=== PATIENT | female | born 1940 | race Caucasian/White ===

== ENCOUNTER 2016-10-18 13:25 | Inpatient (IN) ==
[2016-10-18] MEDS ORDERED: 0.9 % SODIUM CHLORIDE 1,000 ML IV ONE ×3 (14:35→15:54)
[2016-10-18] MEDS ORDERED: DILTIAZEM 25 MG/5 ML VIAL IV ONE (14:39)
--- NOTE | 2016-10-18 14:42 | Emergency Department Note ---
Weakness HPI - General Chief complaint: Weakness Stated complaint: Weakness Time Seen by Provider: 10/18/16 14:20 Source: patient, family Mode of arrival: wheelchair Limitations: no limitations - History of Present Illness HPI Narrative: Seen 2 days ago for UTI, which did grow out Escherichia coli greater 100,000 and sensitive to septra. Daughter states she's had continuous weakness since her UTI. Denies any chest pain or shortness of breath. However, on the monitor when she first arrived rate shows A. fib with RVR, heart rate of approximately 160 - Related Data Home Medications Medication Instructions Recorded Confirmed Levothyroxine [Synthroid] 125 mcg PO DAILY 08/04/15 10/18/16 Donepezil [Aricept] 5 mg PO DAILY 11/04/15 10/18/16 Hydrochlorothiazide [Oretic] 50 mg PO DAILY 11/04/15 10/18/16 Metoprolol Tartrate [Lopressor] 25 mg PO DAILY 11/04/15 10/18/16 Sertraline HCl [Zoloft] 25 mg PO DAILY 11/04/15 10/18/16 Simvastatin [Zocor] 20 mg PO DAILY 11/04/15 10/18/16 Previous Rx's Medication Instructions Recorded Sulfamethoxazole/Trimethoprim 1 each PO BID #14 tablet 10/16/16 [Bactrim Ds Tablet] Allergies Allergy/AdvReac Type Severity Reaction Status Date / Time bacitracin [BACITRACIN] Allergy Mild RASH TO Verified 10/18/16 13:30 TOPICAL codeine [CODEINE] Allergy Mild RASH A Verified 10/18/16 13:30 CHILD penicillin V [PENICILLIN V] Allergy Mild RASH A Verified 10/18/16 13:30 CHILD Penicillins [PENICILLINS] AdvReac Mild Rash Verified 10/18/16 13:30 BEE STING Allergy Severe Anaphylaxis Uncoded 11/05/14 12:37 ADHESIVE TAPE Allergy Intermediate Rash Uncoded 11/05/14 12:37 Review of Systems All systems ED: reviewed and negative except as stated. Constitutional: Denies: fever, chills Eyes: Denies: eye pain ENT ED: Denies: ear pain Cardiovascular: Denies: chest pain Respiratory: Denies: cough Gastrointestinal: Denies: abdominal pain Genitourinary: Denies: urgency Musculoskeletal: Denies: back pain Integumentary: Denies: rash Neurological: Denies: headache Psychiatric: Denies: anxiety Endocrine: Denies: fatigue Hematological/Lymphatic: Denies: easy bleeding Allergic/Immunologic: Denies: facial swelling Past Medical History - Past Medical History Medical history: Reports: dementia, thyroid disease Family history: Reports: no significant family history - Social History smoking status: Never smoker Alcohol use: Reports: None Drug use: Reports: none Physical Exam - General Limitations: no limitations General appearance: alert - Head Head exam: atraumatic - Eye Eye exam: Present: normal appearance - ENT ENT exam: normal exam - Neck Neck exam: Present: normal inspection - Chest Chest inspection: Present: normal inspection - Respiratory Respiratory exam: Present: normal lung sounds bilaterally - Cardiovascular Cardiovascular exam: Present: regular rate, normal rhythm - Abdominal Exam Abdominal exam: Present: soft. Absent: distention, tenderness, guarding - Extremities Exam Extremities exam: Present: normal inspection, full ROM - Back Exam Back exam: Present: normal inspection, tenderness - Neurological Exam Neurological exam: Present: alert, oriented X3 Course Vital Signs Temperature 98.6 F 10/18/16 13:25 Pulse Rate 73 10/18/16 13:25 Respiratory Rate 20 10/18/16 13:25 Blood Pressure 106/61 10/18/16 13:25 Pulse Oximetry (%) 96 10/18/16 13:25 Temperature 103.0 F H 10/18/16 21:10 Pulse Rate 53 L 10/19/16 01:39 Respiratory Rate 12 10/19/16 01:39 Blood Pressure 99/41 10/19/16 01:31 Pulse Oximetry (%) 98 10/19/16 01:39 Weakness - Lab Data Result diagrams: 10/18/16 14:28 10/18/16 14:28 Lab Results 10/18/16 10/18/16 10/18/16 Range/Units 14:28 14:28 14:28 WBC 13.2 H (4.5-11.0) K/mcL RBC 4.89 (4.00-5.20) M/mcL Hgb 15.3 H (12.0-15.0) g/dL Hct 46.1 (36.0-48.0) % MCV 94.4 (80.0-100.0) fL MCH 31.4 (26.0-34.0) pg MCHC 33.2 (31.0-36.0) g/dL RDW 13.6 (11.5-14.5) % Plt Count 240 (140-440) K/mcL MPV 7.1 L (7.4-10.4) fL Total Counted 100 Seg Neutrophils % 77 (38-78) % Band Neutrophils % 16 H (0-10) % Lymphocytes % 3 L (15-49) % Monocytes % (Manual) 4 (1-12) % Platelet Estimate Normal (NORMAL) RBC Morphology Normal (NORMAL) ESR (0-20) mm/hr VBG Lactic Acid 3.0 H (0.5-2.2) mmol/L Sodium 131 L (133-145) mmol/L Potassium 4.6 (3.3-5.1) mmol/L Chloride 93 L (96-108) mmol/L Carbon Dioxide 21 L (22-30) mmol/L Anion Gap 17.0 H (8-16) BUN 27 H (8-23) mg/dl Creatinine 1.2 H (0.6-1.1) mg/dl GFR Calculation 44 Glucose 147 H (70-105) mg/dL Calcium 9.3 (8.6-10.4) mg/dl Total Bilirubin 0.8 (0.0-1.0) mg/dL AST 31 (0-37) U/l ALT 24 (0-40) U/l Alkaline Phosphatase 63 (39-117) U/L Total Creatine Kinase (24-170) IU/L CK-MB (CK-2) (0-2.9) ng/ml Myoglobin (25-58) ng/ml Troponin T (0-0.03) ng/ml C-Reactive Protein (0.0-0.8) mg/dl Total Protein 7.1 (5.9-8.4) gm/dL Albumin 3.7 (3.2-5.2) gm/dL Globulin 3.4 (2.2-3.7) gm/dL Albumin/Globulin Ratio 1.1 (1.0-2.3) TSH (0.27-5.01) uIU/ml Urine Color Urine Appearance Urine pH (5.0-9.0) Ur Specific [place] (1.000-1.035) Urine Protein (NEG) mg/dL Urine Glucose (UA) (NEG) mg/dL Urine Ketones (NEG) mg/dL Urine Occult Blood (<0.03) mg/dL Urine Nitrate (NEG) Urine Bilirubin (NEG) mg/dL Urine Urobilinogen (NEG) mg/dL Ur Leukocyte Esterase (NEG) /uL Urine RBC (0-1) /hpf Urine WBC (0-4) /hpf Ur Squamous Epith Cells (0-4) /hpf Ur Transition Epith Cell (0-2) /hpf Urine Bacteria (0) /hpf Hyaline Casts (0-2) /lpf Urine Mucus (0) /hpf Ur Culture Indicated? 10/18/16 10/18/16 10/18/16 Range/Units 14:28 14:28 14:28 WBC (4.5-11.0) K/mcL RBC (4.00-5.20) M/mcL Hgb (12.0-15.0) g/dL Hct (36.0-48.0) % MCV (80.0-100.0) fL MCH (26.0-34.0) pg MCHC (31.0-36.0) g/dL RDW (11.5-14.5) % Plt Count (140-440) K/mcL MPV (7.4-10.4) fL Total Counted Seg Neutrophils % (38-78) % Band Neutrophils % (0-10) % Lymphocytes % (15-49) % Monocytes % (Manual) (1-12) % Platelet Estimate (NORMAL) RBC Morphology (NORMAL) ESR (0-20) mm/hr VBG Lactic Acid (0.5-2.2) mmol/L Sodium (133-145) mmol/L Potassium (3.3-5.1) mmol/L Chloride (96-108) mmol/L Carbon Dioxide (22-30) mmol/L Anion Gap (8-16) BUN (8-23) mg/dl Creatinine (0.6-1.1) mg/dl GFR Calculation Glucose (70-105) mg/dL Calcium (8.6-10.4) mg/dl Total Bilirubin (0.0-1.0) mg/dL AST (0-37) U/l ALT (0-40) U/l Alkaline Phosphatase (39-117) U/L Total Creatine Kinase 57 (24-170) IU/L CK-MB (CK-2) 1.2 (0-2.9) ng/ml Myoglobin 56 (25-58) ng/ml Troponin T < 0.01 (0-0.03) ng/ml C-Reactive Protein (0.0-0.8) mg/dl Total Protein (5.9-8.4) gm/dL Albumin (3.2-5.2) gm/dL Globulin (2.2-3.7) gm/dL Albumin/Globulin Ratio (1.0-2.3) TSH 1.14 (0.27-5.01) uIU/ml Urine Color Urine Appearance Urine pH (5.0-9.0) Ur Specific [place] (1.000-1.035) Urine Protein (NEG) mg/dL Urine Glucose (UA) (NEG) mg/dL Urine Ketones (NEG) mg/dL Urine Occult Blood (<0.03) mg/dL Urine Nitrate (NEG) Urine Bilirubin (NEG) mg/dL Urine Urobilinogen (NEG) mg/dL Ur Leukocyte Esterase (NEG) /uL Urine RBC (0-1) /hpf Urine WBC (0-4) /hpf Ur Squamous Epith Cells (0-4) /hpf Ur Transition Epith Cell (0-2) /hpf Urine Bacteria (0) /hpf Hyaline Casts (0-2) /lpf Urine Mucus (0) /hpf Ur Culture Indicated? 10/18/16 10/18/16 10/18/16 Range/Units 14:28 14:28 15:57 WBC (4.5-11.0) K/mcL RBC (4.00-5.20) M/mcL Hgb (12.0-15.0) g/dL Hct (36.0-48.0) % MCV (80.0-100.0) fL MCH (26.0-34.0) pg MCHC (31.0-36.0) g/dL RDW (11.5-14.5) % Plt Count (140-440) K/mcL MPV (7.4-10.4) fL Total Counted Seg Neutrophils % (38-78) % Band Neutrophils % (0-10) % Lymphocytes % (15-49) % Monocytes % (Manual) (1-12) % Platelet Estimate (NORMAL) RBC Morphology (NORMAL) ESR 37 H (0-20) mm/hr VBG Lactic Acid (0.5-2.2) mmol/L Sodium (133-145) mmol/L Potassium (3.3-5.1) mmol/L Chloride (96-108) mmol/L Carbon Dioxide (22-30) mmol/L Anion Gap (8-16) BUN (8-23) mg/dl Creatinine (0.6-1.1) mg/dl GFR Calculation Glucose (70-105) mg/dL Calcium (8.6-10.4) mg/dl Total Bilirubin (0.0-1.0) mg/dL AST (0-37) U/l ALT (0-40) U/l Alkaline Phosphatase (39-117) U/L Total Creatine Kinase (24-170) IU/L CK-MB (CK-2) (0-2.9) ng/ml Myoglobin (25-58) ng/ml Troponin T (0-0.03) ng/ml C-Reactive Protein 9.4 H (0.0-0.8) mg/dl Total Protein (5.9-8.4) gm/dL Albumin (3.2-5.2) gm/dL Globulin (2.2-3.7) gm/dL Albumin/Globulin Ratio (1.0-2.3) TSH (0.27-5.01) uIU/ml Urine Color Swati Urine Appearance Cloudy Urine pH 5.0 (5.0-9.0) Ur Specific [place] 1.024 (1.000-1.035) Urine Protein 30 A (NEG) mg/dL Urine Glucose (UA) Negative (NEG) mg/dL Urine Ketones Neg (NEG) mg/dL Urine Occult Blood Neg (<0.03) mg/dL Urine Nitrate Neg (NEG) Urine Bilirubin Neg (NEG) mg/dL Urine Urobilinogen 4.0 A (NEG) mg/dL Ur Leukocyte Esterase 250 A (NEG) /uL Urine RBC 3 H (0-1) /hpf Urine WBC 33 H (0-4) /hpf Ur Squamous Epith Cells 7 H (0-4) /hpf Ur Transition Epith Cell 1 (0-2) /hpf Urine Bacteria Few A (0) /hpf Hyaline Casts 13 H (0-2) /lpf Urine Mucus Many A (0) /hpf Ur Culture Indicated? No Disposition Clinical Impression: Urosepsis Disposition: Xfer As Inpt ([facility]) Condition: Undetermined
[2016-10-18] MEDS ORDERED: DILTIAZEM 125 MG in 0.9 % SODIUM CHLORIDE 100 ML IV SCH (14:45)
[2016-10-18 14:56] LABS: Mean Cell Volume 94.4 fL (80.0-100.0); Mean Corpuscular HGB Conc 33.2 g/dL (31.0-36.0); Mean Corpuscular Hemoglobin 31.4 pg (26.0-34.0); Platelet Count 240 K/mcL (140-440); RBC 4.89 M/mcL (4.00-5.20); Red Cell Distribution Width 13.6 % (11.5-14.5)
--- NOTE | 2016-10-18 14:56 | XRay Report ---
CLINICAL INFORMATION: Weakness TECHNIQUE: AP semierect portal chest x-ray COMPARISON: Chest x-rays dated 11/04/2015, 03/14/2006 FINDINGS: Lungs are negative. No parenchymal infiltrate or mass. Heart size and vascularity are normal. [place] and mediastinum are negative. No pulmonary edema. No pulmonary congestion. IMPRESSION: Negative AP portable chest x-ray Interpreted and Authenticated by: John Barkley 10/18/16
[2016-10-18] MEDS ORDERED: ACETAMINOPHEN 325 MG TABLET PO ONE (15:21)
[2016-10-18] MEDS ORDERED: LACTATED RINGERS 1,000 ML IV ONE (15:22)
[2016-10-18 15:26] LABS: Band Neutrophils % 16 % (0-10); Lymphocytes % 3 % (15-49); Monocytes % (Manual) 4 % (1-12); Platelet Estimate NORMAL (NORMAL); RBC Morphology NORMAL (NORMAL); Segmented Neutrophils % 77 % (38-78)
[2016-10-18] MEDS ORDERED: cefTRIAXone 1 GM in DEXTROSE 5% IN WATER 50 ML IV ONE (15:30)
[2016-10-18] MEDS ORDERED: LEVOFLOXACIN 500 MG/100 ML BAG IV ONE (15:30)
[2016-10-18 15:32] LABS: ALT/SGPT 24 U/l (0-40); Albumin 3.7 gm/dL (3.2-5.2); Albumin/Globulin Ratio 1.1 (1.0-2.3); Alkaline Phosphatase 63 U/L (39-117); Blood Urea Nitrogen 27 mg/dl (8-23)
[2016-10-18 15:35] LABS: Creatine Kinase MB 1.2 ng/ml (0-2.9)
[2016-10-18] MEDS ORDERED: CEFEPIME 2 GM in DEXTROSE 5% IN WATER 50 ML IV ONE (16:29)
[2016-10-18] MEDS ORDERED: NOREPINEPHRINE BITARTRATE 8 MG in 0.9 % SODIUM CHLORIDE 242 ML IV SCH (16:30)
[2016-10-18] MEDS ORDERED: 0.9 % SODIUM CHLORIDE 250 ML IV SCH (16:30)
[2016-10-18 16:35] LABS: Appearance,Urine CLOUDY; Bacteria,Urine FEW /hpf (0); Bilirubin,Urine NEG (NEG); Color,Urine AMBER; Glucose,Urine (UA) NEGATIVE (NEG); Leukocyte Esterase,Urine 250 /uL (NEG); Mucus,Urine MANY /hpf (0); Nitrate,Urine NEG (NEG); Protein,Urine 30 mg/dL (NEG); Specific Gravity,Urine 1.024 (1.000-1.035); Urine Blood NEG mg/dL (<0.03); Urine Hyaline Cast 13 /lpf (0-2); Urine RBC 3 /hpf (0-1); Urine Squamous Epithelial Cell 7 /hpf (0-4); Urine Transitional Epi Cells 1 /hpf (0-2); Urine WBC 33 /hpf (0-4)
[2016-10-18] MEDS ORDERED: AMIODARONE 150 MG/3 ML VIAL IV ONE ×2 (16:36→16:39)
[2016-10-18] MEDS ORDERED: AMIODARONE HCL 450 MG in DEXTROSE 5% IN WATER (NON-PVC) 241 ML IV SCH (16:45)
--- NOTE | 2016-10-18 17:23 | XRay Report ---
CLINICAL INFORMATION: Central line placement TECHNIQUE: AP, supine portable chest x-ray COMPARISON: 10/18/2016, 11/04/2015 FINDINGS: Left central venous catheter with its tip at the junction of the brachiocephalic vein and superior vena cava. No pneumothorax identified on this AP, supine radiograph. No focal pulmonary parenchymal abnormality. IMPRESSION: Left central venous catheter with its tip at the junction of the superior vena cava and left brachiocephalic vein. Interpreted and Authenticated by: John Barkley 10/18/16
[2016-10-18] MEDS: 0.9 % SODIUM CHLORIDE 1,000 ML IV SCH (19:00)
[2016-10-18] MEDS ORDERED: POTASSIUM CHLORIDE 20 MEQ PACKET PO PRN (19:32)
[2016-10-18] MEDS ORDERED: NOREPINEPHRINE BITARTRATE 16 MG in 0.9 % SODIUM CHLORIDE 234 ML IV SCH (19:32)
[2016-10-18] MEDS ORDERED: ONDANSETRON 4 MG/2 ML VIAL IV PRN (19:32)
[2016-10-18] MEDS ORDERED: MAGNESIUM SULFATE 2 GM/50 ML BAG IV PRN (19:32)
[2016-10-18] MEDS ORDERED: VANCOMYCIN PER PHARMACY IV SCH (19:32)
--- NOTE | 2016-10-18 19:53 | History and Physical Report ---
DATE OF ADMISSION: 10/18/2016 DATE OF ADMISSION: 10/18/2016 REASON FOR ADMISSION: Weakness, fever, lightheadedness, dizziness. HISTORY OF CHIEF COMPLAINT: The patient is a 76-year-old with advanced dementia who lives with her daughter Allison and has been experiencing dysuria along with weakness over the last few days. The patient was seen 2 days ago in the ER, was prescribed Bactrim for UTI with E. coli; however, patient has continued to deteriorate without any significant response to antibiotics. She comes in lightheaded, dizzy, along with atrial fibrillation with RVR and blood pressures in the 60s. The patient was promptly started on vasopressors. Initially for rate control, the patient was started on diltiazem; however, in light of hypotension, she was loaded on amiodarone. Hospitalist Service was consulted after antibiotics and blood cultures were drawn. At the time of examination, the patient is accompanied with her daughter. She was able to provide some of the history. She has underlying dementia, but she was pleasant and cooperative. She does not seem in apparent distress. Her systolics have been hovering around mid 60s with elevated lactic acid. As per daughter, patient did not have any events including falls, diarrhea, dysuria, or seizure. She did endorse to lower abdominal discomfort but no nausea, vomiting, or weight loss. REVIEW OF SYSTEMS: Ten-point review of systems was performed and negative except the ones discussed above. PAST MEDICAL HISTORY: 1. Hypertension. 2. Dementia. 3. Hypothyroidism. 4. Anxiety disorder. 5. Hyperlipidemia. 6. Reactive airway disease. CURRENT MEDICATIONS: 1. Bactrim twice daily. 2. Albuterol as needed. 3. Simvastatin 20. 4. Sertraline 25. 5. Metoprolol 25. 6. Hydrochlorothiazide 50. 7. Donepezil 5. 8. Synthroid 125. ALLERGIES: PENICILLIN G, CODEINE, BACITRACIN, ADHESIVE, and BEE STINGS. SOCIAL HISTORY: Nonsmoker. Currently lives with her daughter who is a retired nurse. No history of smoking or alcoholism. FULL CODE STATUS. FAMILY HISTORY: Nonrelevant given advanced age and presenting symptoms. PHYSICAL EXAMINATION: GENERAL: The patient is fatigued and lethargic but cooperative. No anxiety or agitation. BMI 34.9. Height 5 feet 5 inches. VITAL SIGNS: Blood pressure down to 60s, improved to mid 80s after initiation of pressors, heart rate down from 140s to 118, temperature 102.8, respiratory rate 30, saturation 95% on room air. HEENT: Pupils symmetric. Oral cavity dry. No ear or nose discharge. Head is normocephalic and atraumatic. NECK: No lymphadenopathy. CHEST: S1, S2, irregular rhythm. ESM grade 1. Diminished breath sounds at bases. ABDOMEN: Soft and nontender except for epigastric area with tenderness to deep palpation but no fluid, guarding. Negative Santos's. Negative flank tenderness. LOWER EXTREMITIES: No cyanosis or clubbing. No joint swelling. SKIN: No suspicious lesions. PSYCHIATRIC: No anxiety or agitation but fatigued and lethargic. NEURO: Moving all 4 extremities. Higher functions could not be checked in light of dementia. LABS AND IMAGING: White count 13.2, hemoglobin 15.3, platelets 240, neutrophils 77%, bands 16% with significant left shift, lactic acid 3. Sodium 131, potassium 4.6, creatinine 1.2, BUN 27. Troponin negative. TSH 1.14. LFTs negative. Cardiac enzymes negative. UA: __ WBCs, many bacteria. ASSESSMENT AND PLAN: A 76-year-old with septic shock. 1. Septic shock. Will be managed per guidelines. Start pressors. Three liters crystalloid infused. Continue close hemodynamic monitoring, venous lactate trending, continue broad antibiotic coverage until culture is obtained. Urine cultures pansensitive Escherichia coli. 2. Complicated Escherichia coli urinary tract infection, rule out obstructive nephropathy with ultrasound. Continue broad antibiotic coverage. 3. Afib with RVR. Status post Amiodarone load. rate controlled. 4. Prior medical issues at this time: Hold all medication until patient is clinically stable. At this time, the patient is critically ill with [place] score of 20, signifying very high risk mortality. PLAN: 1. Admit to ICU. 2. Broad antibiotic coverage. 3. Pressors and crystalloids. Total time spent on history and physical 55 minutes, in addition 35 minutes spent critical care time on stabilization of patient, vasopressors, review of labs and imaging, and discussion with physician and transferring patient to ICU. AA:lonnie Job ID: [id number] Doc ID: [id number] Rusty DEAN
[2016-10-18] MEDS: ACETAMINOPHEN 325 MG TABLET PO PRN (20:25)
[2016-10-18] MEDS ORDERED: NAPROXEN 250 MG TABLET PO ONE (21:12)
[2016-10-18] MEDS: 0.9 % SODIUM CHLORIDE 250 ML IV SCH (21:33)
[2016-10-18] MEDS: HEPARIN 5,000 UNIT/ML VIAL SQ SCH (21:36)
[2016-10-18] MEDS: SENNOSIDES/DOCUSATE SODIUM 1 TAB TABLET PO SCH (21:37)
[2016-10-18] MEDS: 0.9 % SODIUM CHLORIDE 10 ML SYRINGE IV SCH (21:37)
[2016-10-18] MEDS: DOCUSATE SODIUM 100 MG CAPSULE PO SCH (21:37)
[2016-10-18] MEDS ORDERED: VANCOMYCIN 500 MG VIAL ONE (23:34)
[2016-10-18] MEDS: VANCOMYCIN 1,000 MG in 0.9 % SODIUM CHLORIDE 250 ML IV SCH (23:41)
[2016-10-19] MEDS ORDERED: AMIODARONE HCL 450 MG in DEXTROSE 5% IN WATER (NON-PVC) 241 ML IV SCH (02:00)
[2016-10-19] MEDS ORDERED: NOREPINEPHRINE BITARTRATE 4 MG/4 ML AMPUL IV ONE (02:27)
[2016-10-19 06:18] LABS: ALT/SGPT 22 U/l (0-40); Albumin 2.6 gm/dL (3.2-5.2); Alkaline Phosphatase 55 U/L (39-117); Bilirubin,Direct 0.6 mg/dL (0.0-0.3); Blood Urea Nitrogen 15 mg/dl (8-23); Gamma Glutamyl Transpeptidase 63 U/L (5-36); Magnesium 1.7 mg/dL (1.6-2.5); Uric Acid 3.4 mg/dL (2.5-8.0)
[2016-10-19] MEDS: 0.9 % SODIUM CHLORIDE 10 ML SYRINGE IV SCH ×2 (06:30→13:00)
[2016-10-19] MEDS: 0.9 % SODIUM CHLORIDE 1,000 ML IV SCH ×2 (06:41→21:07)
[2016-10-19] MEDS ORDERED: 0.9 % SODIUM CHLORIDE 10 ML SYRINGE IV PRN (07:03)
[2016-10-19 07:46] LABS: Mean Cell Volume 96.1 fL (80.0-100.0); Mean Corpuscular HGB Conc 33.6 g/dL (31.0-36.0); Mean Corpuscular Hemoglobin 32.2 pg (26.0-34.0); Platelet Count 192 K/mcL (140-440); RBC 4.12 M/mcL (4.00-5.20); Red Cell Distribution Width 13.7 % (11.5-14.5)
[2016-10-19 07:51] LABS: Band Neutrophils % 26 % (0-10); Eosinophils % (Manual) 2 % (0-7); Lymphocytes % 1 % (15-49); Metamyelocytes % 1 % (0-0); Monocytes % (Manual) 1 % (1-12); Platelet Estimate NORMAL (NORMAL); RBC Morphology NORMAL (NORMAL); Segmented Neutrophils % 69 % (38-78)
--- NOTE | 2016-10-19 08:24 | Ultrasound Report ---
CLINICAL INFORMATION: Renal failure. Obstructive uropathy. TECHNIQUE: Grayscale and color flow spectral imaging COMPARISON: None. FINDINGS: Right kidney measures 12.5 x 5.5 x 4.2 cm. No solid or cystic mass. No hydronephrosis. Normal sinus and cortical echoes. Left kidney measures 11.5 x 7.4 x 6.0 cm. There is a possible mass. This is in the mid left kidney and measures 4.7 x 4.2 x 3.4 cm. This may be a subtle-called dromedary hump but it appears somewhat hypoechoic compared with the normal cortical echotexture. Neoplasm is not excluded. CT scan or MRI scan is recommended for further evaluation. There is no left hydronephrosis. There is a Martel catheter within the urinary bladder. There appears to be some debris within the bladder. IMPRESSION: 1. Negative right kidney 2. Possible 4.7 cm solid mass in the left kidney. Further evaluation recommended. Interpreted and Authenticated by: John Barkley 10/19/16
[2016-10-19] MEDS ORDERED: 0.9 % SODIUM CHLORIDE 1,000 ML IV ONE (08:29)
[2016-10-19] MEDS ORDERED: DONEPEZIL 10 MG TABLET PO SCH (09:00)
[2016-10-19] MEDS: CEFEPIME 2 GM in DEXTROSE 5% IN WATER 50 ML IV SCH ×2 (09:01→20:52)
[2016-10-19] MEDS: LEVOFLOXACIN 750 MG/150 ML BAG IV SCH (09:51)
[2016-10-19] MEDS: MULTIVIT,THER IRON,CA,FA & MIN 1 TABLET PO SCH (10:13)
[2016-10-19] MEDS: SIMVASTATIN 20 MG TABLET PO SCH (10:13)
[2016-10-19] MEDS: DOCUSATE SODIUM 100 MG CAPSULE PO SCH ×2 (10:13→20:51)
[2016-10-19] MEDS: HEPARIN 5,000 UNIT/ML VIAL SQ SCH ×2 (10:14→20:51)
[2016-10-19] MEDS: SERTRALINE 50 MG TABLET PO SCH (10:20)
[2016-10-19] MEDS: ACETAMINOPHEN 325 MG TABLET PO PRN ×2 (10:30→19:08)
[2016-10-19] MEDS ORDERED: AMIODARONE HCL 450 MG in DEXTROSE 5% IN WATER (NON-PVC) 241 ML IV PRN (11:19)
[2016-10-19] MEDS: VANCOMYCIN 1,000 MG in 0.9 % SODIUM CHLORIDE 250 ML IV SCH ×2 (11:39→23:22)
[2016-10-19] MEDS: NOREPINEPHRINE BITARTRATE 8 MG in 0.9 % SODIUM CHLORIDE 242 ML IV SCH (11:43)
--- NOTE | 2016-10-19 13:47 | Internal Med Progress Note ---
Medical - PN: Subj Patient information: Note initiated : 10/19/16 at 1:45 pm Service Date, if different from initiated Date: [] Patient: Paige Christianson 76 y/o F admitted on 10/18/16 for Weakness/ Septic Shock. Chief Complaint: [] Interval history: 10/18-patient admitted with septic shock likely from genitourinary source. Recent UTI with Escherichia coli on cultures. started On vasopressors after 2-1 /2 L crystalloids. Improving urine output. Map at goal. transferred to ICU. Broad antibiotic coverage including vancomycin, Levaquin and cefepime. [place] score 20. Very high risk mortality. Family aware 10/19- on Levophed at 10 mics. MAXIMUM TEMPERATURE 103. renal ultrasound no obstructive uropathy however 4.[address] abdomen in 24 hours for evaluation if patient clinically improves. white count at 13.2. 26% bands. lactic acid down from 3-1.4. improving renal function with creatinine 1.2-0.8. continue pressors and close hemodynamic monitoring. Patient critically ill. - Constitutional Vitals: Vital Signs Temp Pulse Resp BP Pulse Ox 98.5 F 66 16 112/50 98 10/19/16 13:07 10/19/16 11:33 10/19/16 13:07 10/19/16 13:07 10/19/16 13:07 Period Temp Pulse Resp BP Sys/Ribeiro Pulse Ox Last 24 Hr 98.2 F-103.0 F 53-88 12-37 90-138/41-93 92-99 Intake and Output 10/18/16 10/19/16 10/19/16 21:59 05:59 13:59 Intake Total 222 / 4457 1250 / 1250 3170 / 3170 Output Total 645 / 645 840 / 840 920 / 920 Balance -423 / 3812 410 / 410 2250 / 2250 Weight 203 lb 4.8 oz Intake & Output: Intake & Output 10/18/16 10/19/16 10/19/16 21:59 05:59 13:59 Intake Total 222 / 4457 1250 / 1250 3170 / 3170 Output Total 645 / 645 840 / 840 920 / 920 Balance -423 / 3812 410 / 410 2250 / 2250 Weight 203 lb 4.8 oz Intake: IV 122 / 245 1000 / 1000 2485 / 2485 Sodium Chloride 0.9% 1, 1000 / 1000 2235 / 2235 000 ml @ Wide Open IV [facility] Rx#:[id number] Sodium Chloride 0.9% 250 50 / 50 ml @ 20 mls/hr IV . [id number] [facility] Rx#:[id number] Amiodarone HCl 450 mg In 50 / 50 Dextrose 5% in Water (Non -Pvc) 241 ml @ 1 MG/MIN 33.33 mls/hr IV Q15H [facility] Rx#:[id number] Maxipime 2 gm In Dextrose 50 / 50 5% in Water 50 ml @ 100 mls/hr IV Q12H [facility] Rx#: [id number] Levophed 8 mg In Sodium 22 / 45 Chloride 0.9% 242 ml @ 10 MCG/MIN 18.75 mls/hr IV Q14H [facility] Rx#:[id number] Oral 100 / 100 250 / 250 685 / 685 Output: Urine Catheter Amount 645 / 645 840 / 840 920 / 920 Other: Meal Lunch Percent of Meal Consumed 25% # Bowel Movements 1 General appearance: cooperative, no acute distress Exam: alert and pleasant Baseline dementia nonlabored breathing Foleys draining clear urine Nondistended abdomen Medical - PN: Obj Da - Labs CBC & Chem 7: 10/19/16 04:22 10/19/16 04:11 Labs: Abnormal Lab Results 10/19/16 10/19/16 04:22 04:11 WBC 13.2 H MPV 7.3 L Band Neutrophils % 26 H Lymphocytes % 1 L Metamyelocytes % 1 H Carbon Dioxide 20 L Glucose 155 H Calcium 7.8 L Phosphorus 2.4 L Total Bilirubin 1.1 H Direct Bilirubin 0.6 H GGT 63 H Total Protein 5.2 L Albumin 2.6 L Meds: Medications Acetaminophen (Tylenol) 650 mg PO Q4-6HP PRN PRN Reason: PAIN/FEVER > 101 Last Admin: 10/19/16 10:30 Dose: 650 mg Docusate Sodium (Colace) 100 mg PO BID [facility] Last Admin: 10/19/16 10:13 Dose: 100 mg Heparin Sodium (Porcine) (Heparin) 5,000 unit SQ Q12 [facility] Last Admin: 10/19/16 10:14 Dose: 5,000 unit Norepinephrine Bitartrate 8 mg (/ Sodium Chloride) 250 mls @ 18.75 mls/hr IV Q14H [facility]; 10 MCG/MIN PRN Reason: Protocol Last Admin: 10/19/16 11:43 Dose: 10 mcg/min, 18.75 mls/hr Cefepime HCl 2 gm/ Dextrose 50 mls @ 100 mls/hr IV Q12H [facility] Last Infusion: 10/19/16 09:51 Dose: Infused Levofloxacin (Levaquin) 750 mg in 150 mls @ 100 mls/hr IV Q24H [facility] Last Infusion: 10/19/16 11:30 Dose: Infused Magnesium Sulfate (Magnesium Sulfate) 2 gm in 50 mls @ 50 mls/hr IV UD PRN PRN Reason: MG = or < 1.7 Last Infusion: 10/19/16 11:30 Dose: Infused Sodium Chloride (Sodium Chloride 0.9%) 1,000 mls @ 100 mls/hr IV .Q10H [facility] Stop: 10/20/16 01:31 Last Infusion: 10/19/16 09:02 Dose: 0 mls/hr Sodium Chloride (Sodium Chloride 0.9%) 250 mls @ 20 mls/hr IV .[id number] [facility] Last Admin: 10/18/16 21:33 Dose: 20 mls/hr Vancomycin HCl 1,000 mg/ (Sodium Chloride) 250 mls @ 250 mls/hr IV Q12H [facility] Last Admin: 10/19/16 11:39 Dose: 250 mls/hr Amiodarone HCl 450 mg/ (Dextrose) 250 mls @ 16.66 mls/hr IV Q24HP PRN; Protocol ; 0.5 MG/MIN PRN Reason: Tachyarrhythmias Iron Carb/Multivit/[employer] Helper/Folic Acid (Multivitamin W/Minerals) 1 tab PO DAILY [facility] Last Admin: 10/19/16 10:13 Dose: 1 tab Levothyroxine Sodium (Synthroid) 112 mcg PO QAMAC [place] Levothyroxine Sodium (Synthroid) 25 mcg PO QAMAC [facility] Ondansetron HCl (Zofran) 4 mg IV Q4-6HP PRN PRN Reason: Nausea And Vomiting Last Admin: 10/18/16 21:36 Dose: 4 mg Donepezil Hcl [ Aricept] 23 Mg Tablet 1 dose PO DAILY [facility] Potassium Chloride (Klor-Con) 40 meq PO DAILYP PRN PRN Reason: K+ < 3.5 Senna/Docusate Sodium (Senna Plus Tablet) 1 tab PO HS [facility] Last Admin: 10/18/16 21:37 Dose: Not Given Sertraline HCl (Zoloft) 25 mg PO DAILY [facility] Last Admin: 10/19/16 10:20 Dose: 25 mg Simvastatin (Zocor) 20 mg PO DAILY [facility] Last Admin: 10/19/16 10:13 Dose: 20 mg Sodium Chloride (Saline Flush) 10 ml IV Q8 [facility] Last Admin: 10/19/16 06:30 Dose: Not Given Sodium Chloride (Saline Flush) 10 ml IV UD PRN PRN Reason: FLUSH Vancomycin HCl (Vancomycin Per Pharmacy) 1 order IV UD [facility] Medical - PN: A/P - Time Spent With Patient Total time spent is greater than 50% in coordination of care (as documented) at patient's floor/unit and/or counseling patient: Greater than 35 minutes (critical time) (1) Septic shock due to Escherichia coli Status: Acute Assessment and plan: * Septic shock-on vasopressors/crystalloids. Map at goal broad antibiotic coverage for underlying Escherichia coli. De-escalate based on subsequent blood cultures. improving prognosis * complicated UTI- no evidence of obstructive nephropathy. Renal ultrasound shows 4.7 cm mass * ARYA clinically improved- creatinine down from 1.2-0.8 with aggressive crystalloids. * 4.7 cm renal mass- cT abdomen in 24-48 hours for further evaluation * history of dementia and donepezil * hypothymism thyroxine * hyperlipidemia statin * anxiety disorder and sertraline * DNR Plan * Wean pressors as indicated * Critical care management * De-escalate antibiotics based on cultures * CT scan abdomen and 24 -48 hours for renal mass evaluation Current Visit: Yes Medical - PN: Qual - VTE Deep Vein Thrombosis/Pulmonary Embolism Present on Admission: No
--- NOTE | 2016-10-19 14:36 | Procedure Note ---
Procedures - Central Line Placement Left IJ Consent obtained: verbal consent Time out performed: Yes Patient placed on monitor/pulse ox: Yes MD prep: mask, sterile gown, sterile gloves, cap Central line prep: 2% Chlorhexidine scrub Local anesthesia used: lidocaine 1% Amount of anesthesia used (mls): 5 Ultrasound used for placement: Yes Central line lumen inserted: quad, 16 cm Post procedure: sutured in place, good blood return, all ports aspirated, flushed, capped, sterile dressing applied Post procedure x-ray: tip of catheter in good position, no pneumothorax seen Patient tolerated procedure: well Complications: none
[2016-10-19] MEDS: SENNOSIDES/DOCUSATE SODIUM 1 TAB TABLET PO SCH (20:51)
[2016-10-19] MEDS ORDERED: METOPROLOL TARTRATE 5 MG/5 ML VIAL IV ONE (23:51)
[2016-10-20] MEDS: METOPROLOL SUCCINATE 25 MG TAB.XL.24H PO SCH ×2 (00:05→09:56)
[2016-10-20] MEDS: 0.9 % SODIUM CHLORIDE 10 ML SYRINGE IV SCH ×4 (00:14→22:56)
[2016-10-20] MEDS: 0.9 % SODIUM CHLORIDE 250 ML IV SCH ×2 (01:06→14:19)
[2016-10-20] MEDS: NOREPINEPHRINE BITARTRATE 8 MG in 0.9 % SODIUM CHLORIDE 242 ML IV SCH ×2 (01:07→02:41)
[2016-10-20 05:32] LABS: Mean Cell Volume 95.2 fL (80.0-100.0); Mean Corpuscular HGB Conc 34.2 g/dL (31.0-36.0); Mean Corpuscular Hemoglobin 32.5 pg (26.0-34.0); Platelet Count 177 K/mcL (140-440); RBC 3.74 M/mcL (4.00-5.20); Red Cell Distribution Width 13.7 % (11.5-14.5)
[2016-10-20 06:07] LABS: ALT/SGPT 17 U/l (0-40); Albumin/Globulin Ratio 0.8 (1.0-2.3); Alkaline Phosphatase 66 U/L (39-117); Bilirubin,Direct 0.3 mg/dL (0.0-0.3); Blood Urea Nitrogen 8 mg/dl (8-23); Gamma Glutamyl Transpeptidase 78 U/L (5-36); Magnesium 1.9 mg/dL (1.6-2.5); Uric Acid 2.8 mg/dL (2.5-8.0)
[2016-10-20 06:39] LABS: Band Neutrophils % 35 % (0-10); Eosinophils % (Manual) 4 % (0-7); Lymphocytes % 2 % (15-49); Monocytes % (Manual) 6 % (1-12); Platelet Estimate NORMAL (NORMAL); RBC Morphology NORMAL (NORMAL); Segmented Neutrophils % 53 % (38-78)
[2016-10-20] MEDS: ACETAMINOPHEN 325 MG TABLET PO PRN (07:04)
[2016-10-20] MEDS: CEFEPIME 2 GM in DEXTROSE 5% IN WATER 50 ML IV SCH ×2 (07:21→19:33)
[2016-10-20] MEDS ORDERED: LEVOTHYROXINE SODIUM 112 MCG TABLET PO SCH (07:30)
[2016-10-20] MEDS ORDERED: LEVOTHYROXINE 25 MCG TABLET PO SCH (07:30)
--- NOTE | 2016-10-20 07:54 | XRay Report ---
CLINICAL INFORMATION: Weakness. Sepsis. TECHNIQUE: AP portable chest x-ray COMPARISON: Previous examinations dated 10/18/2016 and 11/04/2015 FINDINGS: No change in left central venous catheter position. Increasing bilateral infiltrates, predominantly at the lung bases. There is probable pleural fluid. This is not well visualized on this AP radiograph. Findings may be due to pulmonary edema but pneumonia is possible. Clinical correlation and continued follow-up recommended IMPRESSION: Increasing infiltrates and probable pleural fluid Interpreted and Authenticated by: John Barkley 10/20/16
[2016-10-20] MEDS: LEVOFLOXACIN 750 MG/150 ML BAG IV SCH (09:20)
[2016-10-20] MEDS: SERTRALINE 50 MG TABLET PO SCH (09:56)
[2016-10-20] MEDS: SIMVASTATIN 20 MG TABLET PO SCH ×2 (09:56→21:03)
[2016-10-20] MEDS: MULTIVIT,THER IRON,CA,FA & MIN 1 TABLET PO SCH (09:56)
[2016-10-20] MEDS: DOCUSATE SODIUM 100 MG CAPSULE PO SCH ×2 (09:57→21:46)
[2016-10-20] MEDS: HEPARIN 5,000 UNIT/ML VIAL SQ SCH ×2 (09:57→21:02)
[2016-10-20] MEDS ORDERED: NEUTRA PHOS 1 PACKET PO SCH (10:15)
[2016-10-20] MEDS ORDERED: 0.9 % SODIUM CHLORIDE 1,000 ML IV SCH (10:15)
[2016-10-20] MEDS ORDERED: NOREPINEPHRINE BITARTRATE 8 MG in 0.9 % SODIUM CHLORIDE 242 ML IV PRN (10:30)
--- NOTE | 2016-10-20 11:17 | Internal Med Progress Note ---
Medical - PN: Subj Patient information: Note initiated : 10/20/16 at 11:12 am Service Date, if different from initiated Date: [] Patient: Paige Christianson 76 y/o F admitted on 10/18/16 for Weakness/ Septic Shock. Chief Complaint: [] Interval history: 10/18-patient admitted with septic shock likely from genitourinary source. Recent UTI with Escherichia coli on cultures. started On vasopressors after 2-1 /2 L crystalloids. Improving urine output. Map at goal. transferred to ICU. Broad antibiotic coverage including vancomycin, Levaquin and cefepime. [place] score 20. Very high risk mortality. Family aware 10/19- on Levophed at 10 mics. MAXIMUM TEMPERATURE 103. renal ultrasound no obstructive uropathy however 4.[address] abdomen in 24 hours for evaluation if patient clinically improves. white count at 13.2. 26% bands. lactic acid down from 3-1.4. improving renal function with creatinine 1.2-0.8. continue pressors and close hemodynamic monitoring. Patient critically ill. 10/20- patient doing well. Off pressors. No overnight events. Intermittent confusion in the setting of underlying dementia but no agitation. No telemetry events. afebrile during last 24 hours. foleys draining clear urine. - Constitutional Vitals: Vital Signs Temp Pulse Resp BP Pulse Ox 98.2 F 79 20 99/66 92 10/20/16 07:00 10/20/16 05:56 10/20/16 09:20 10/20/16 09:20 10/20/16 09:20 Period Temp Pulse Resp BP Sys/Ribeiro Pulse Ox Last 24 Hr 97.6 F-99.6 F 66-95 12-31 94-133/42-79 92-99 Intake and Output 10/19/16 10/20/16 10/20/16 21:59 05:59 13:59 Intake Total 1555 / 1555 402 / 402 1290 / 1290 Output Total 870 / 870 830 / 830 210 / 210 Balance 685 / 685 -428 / -428 1080 / 1080 Weight 207 lb 6.4 oz Intake & Output: Intake & Output 10/19/16 10/20/16 10/20/16 21:59 05:59 13:59 Intake Total 1555 / 1555 402 / 402 1290 / 1290 Output Total 870 / 870 830 / 830 210 / 210 Balance 685 / 685 -428 / -428 1080 / 1080 Weight 207 lb 6.4 oz Intake: IV 815 / 815 227 / 227 1050 / 1050 Sodium Chloride 0.9% 1, 765 / 765 1000 / 1000 000 ml @ 100 mls/hr IV . Q10H [facility] Rx#:[id number] Maxipime 2 gm In Dextrose 50 / 50 50 / 50 5% in Water 50 ml @ 100 mls/hr IV Q12H [facility] Rx#: [id number] Levophed 8 mg In Sodium 200 / 200 Chloride 0.9% 242 ml @ 10 MCG/MIN 18.75 mls/hr IV Q14H [facility] Rx#:[id number] Vancomycin 1,000 mg In 27 / 27 Sodium Chloride 0.9% 250 ml @ 250 mls/hr IV Q12H [facility] Rx#:[id number] Oral 740 / 740 175 / 175 240 / 240 Output: Urine Catheter Amount 870 / 870 830 / 830 210 / 210 Other: Meal Dinner Percent of Meal Consumed 25% Refused # Bowel Movements 1 1 General appearance: cooperative, no acute distress Exam: Alert but confused Nonlabored breathing Foleys draining clear urine no telemetry events Medical - PN: Obj Da - Labs CBC & Chem 7: 10/19/16 04:22 10/20/16 03:55 Labs: Abnormal Lab Results 10/20/16 10/20/16 10/19/16 03:55 03:55 04:22 WBC 13.2 H RBC 3.74 L Hct 35.5 L MPV 7.3 L Band Neutrophils % 35 H 26 H Lymphocytes % 2 L 1 L Metamyelocytes % 1 H Chloride 109 H Carbon Dioxide Anion Gap 7.0 L Creatinine 0.5 L Glucose Calcium 7.6 L Phosphorus 1.1 L Total Bilirubin Direct Bilirubin GGT 78 H Total Protein 4.5 L Albumin 2.0 L Albumin/Globulin Ratio 0.8 L 10/19/16 04:11 WBC RBC Hct MPV Band Neutrophils % Lymphocytes % Metamyelocytes % Chloride Carbon Dioxide 20 L Anion Gap Creatinine Glucose 155 H Calcium 7.8 L Phosphorus 2.4 L Total Bilirubin 1.1 H Direct Bilirubin 0.6 H GGT 63 H Total Protein 5.2 L Albumin 2.6 L Albumin/Globulin Ratio Meds: Medications Acetaminophen (Tylenol) 650 mg PO Q4-6HP PRN PRN Reason: PAIN/FEVER > 101 Last Admin: 10/20/16 07:04 Dose: 650 mg Docusate Sodium (Colace) 100 mg PO BID [facility] Last Admin: 10/20/16 09:57 Dose: Not Given Heparin Sodium (Porcine) (Heparin) 5,000 unit SQ Q12 [facility] Last Admin: 10/20/16 09:57 Dose: 5,000 unit Cefepime HCl 2 gm/ Dextrose 50 mls @ 100 mls/hr IV Q12H [facility] Last Infusion: 10/20/16 08:00 Dose: Infused Levofloxacin (Levaquin) 750 mg in 150 mls @ 100 mls/hr IV Q24H [facility] Last Admin: 10/20/16 09:20 Dose: 100 mls/hr Magnesium Sulfate (Magnesium Sulfate) 2 gm in 50 mls @ 50 mls/hr IV UD PRN PRN Reason: MG = or < 1.7 Last Infusion: 10/19/16 11:30 Dose: Infused Sodium Chloride (Sodium Chloride 0.9%) 250 mls @ 20 mls/hr IV .[id number] [facility] Last Admin: 10/20/16 01:06 Dose: Not Given Vancomycin HCl 1,000 mg/ (Sodium Chloride) 250 mls @ 250 mls/hr IV Q12H [facility] Last Infusion: 10/19/16 23:30 Dose: 0 mls/hr Amiodarone HCl 450 mg/ (Dextrose) 250 mls @ 16.66 mls/hr IV Q24HP PRN; Protocol ; 0.5 MG/MIN PRN Reason: Tachyarrhythmias Sodium Chloride (Sodium Chloride 0.9%) 1,000 mls @ 50 mls/hr IV .Q20H [facility] Norepinephrine Bitartrate 8 mg (/ Sodium Chloride) 250 mls @ 18.75 mls/hr IV Q24HP PRN; Protocol; 10 MCG/MIN PRN Reason: Hypotension Iron Carb/Multivit/[place]/Folic Acid (Multivitamin W/Minerals) 1 tab PO DAILY [facility] Last Admin: 10/20/16 09:56 Dose: 1 tab Levothyroxine Sodium (Synthroid) 112 mcg PO QAMAC [facility] Last Admin: 10/20/16 07:02 Dose: 112 mcg Levothyroxine Sodium (Synthroid) 25 mcg PO QAMAC [facility] Last Admin: 10/20/16 07:02 Dose: 25 mcg Metoprolol Succinate (Toprol Xl) 25 mg PO DAILY [facility] Last Admin: 10/20/16 09:56 Dose: 25 mg Ondansetron HCl (Zofran) 4 mg IV Q4-6HP PRN PRN Reason: Nausea And Vomiting Last Admin: 10/18/16 21:36 Dose: 4 mg Donepezil Hcl [ Aricept] 23 Mg Tablet 1 dose PO DAILY [facility] Last Admin: 10/20/16 09:57 Dose: 1 dose Potassium Chloride (Klor-Con) 40 meq PO DAILYP PRN PRN Reason: K+ < 3.5 Potassium/Phosphorus/Sodium (Neutra Phos) 2 packet PO TID [facility] Stop: 10/21/16 21:01 Last Admin: 10/20/16 10:43 Dose: 2 packet Senna/Docusate Sodium (Senna Plus Tablet) 1 tab PO HS [facility] Last Admin: 10/19/16 20:51 Dose: 1 tab Sertraline HCl (Zoloft) 25 mg PO DAILY [facility] Last Admin: 10/20/16 09:56 Dose: 25 mg Simvastatin (Zocor) 20 mg PO DAILY [facility] Last Admin: 10/20/16 09:56 Dose: 20 mg Sodium Chloride (Saline Flush) 10 ml IV Q8 [facility] Last Admin: 10/20/16 05:49 Dose: 10 ml Sodium Chloride (Saline Flush) 10 ml IV UD PRN PRN Reason: FLUSH Vancomycin HCl (Vancomycin Per Pharmacy) 1 order IV UD [facility] Medical - PN: A/P - Time Spent With Patient Total time spent is greater than 50% in coordination of care (as documented) at patient's floor/unit and/or counseling patient: Greater than 35 minutes (critical care time) (1) Septic shock due to Escherichia coli Status: Acute Assessment and plan: * Septic shock-patient off vasopressors since this morning. Continue close hemodynamic monitoring. Map at goal. Good urine output. Continue crystalloids at 50 cc hour until patient able to take adequate oral supplements * Gram-positive bacteremia- continue vancomycin for empiric MRSA coverage. Unclear source. Surveillance cultures pending * Complicated Escherichia coli UTI- pansensitive on antibiotics. no evidence of obstructive nephropathy. Renal ultrasound shows 4.7 cm mass * ARYA clinically improved- creatinine down from 1.2-0.8 with aggressive crystalloids. * 4.7 cm renal mass- cT abdomen in 24-48 hours for further evaluation * history of dementia on donepezil * hypothyroidism continue thyroxine * hyperlipidemia statin * anxiety disorder on sertraline * DNR Plan * transfer to telemetry * Surveillance cultures for GPC bacteremia * DC Levaquin. Further de-escalation of antibiotics based on sensitivities * CT scan abdomen with contrast in a.m.. Current Visit: Yes Medical - PN: Qual - VTE Deep Vein Thrombosis/Pulmonary Embolism Present on Admission: No
[2016-10-20] MEDS: VANCOMYCIN 1,000 MG in 0.9 % SODIUM CHLORIDE 250 ML IV SCH (11:40)
[2016-10-20] MEDS ORDERED: POTASSIUM CHLORIDE 20 MEQ PACKET PO PRN (12:39)
[2016-10-20] MEDS ORDERED: ONDANSETRON 4 MG/2 ML VIAL IV PRN (12:39)
[2016-10-20] MEDS ORDERED: VANCOMYCIN PER PHARMACY IV SCH (12:39)
[2016-10-20] MEDS ORDERED: MAGNESIUM SULFATE 2 GM/50 ML BAG IV PRN (12:39)
[2016-10-20] MEDS ORDERED: ACETAMINOPHEN 325 MG TABLET PO PRN (12:39)
[2016-10-20] MEDS ORDERED: 0.9 % SODIUM CHLORIDE 10 ML SYRINGE IV PRN (12:39)
[2016-10-20] MEDS: METOPROLOL TARTRATE 5 MG/5 ML VIAL IV PRN ×3 (15:39→22:45)
[2016-10-20] MEDS: NEUTRA PHOS 1 PACKET PO SCH ×2 (15:57→21:03)
[2016-10-20] MEDS ORDERED: LORazepam 0.5 MG TABLET ONE ×2 (19:31→21:18)
[2016-10-20] MEDS: LORazepam 0.5 MG TABLET PO PRN (21:16)
[2016-10-20] MEDS ORDERED: LORazepam 2 MG/ML VIAL IV PRN (21:28)
[2016-10-20] MEDS: SENNOSIDES/DOCUSATE SODIUM 1 TAB TABLET PO SCH (21:46)
[2016-10-20] MEDS ORDERED: methylPREDNISolone SOD SUCC 125 MG/2 ML VIAL IV ONE (21:55)
[2016-10-20] MEDS ORDERED: methylPREDNISolone SOD SUCC 125 MG/2 ML VIAL ONE (22:13)
[2016-10-20] MEDS ORDERED: VANCOMYCIN 1,000 MG in 0.9 % SODIUM CHLORIDE 250 ML IV SCH (23:00)
[2016-10-21] MEDS ORDERED: METOPROLOL TARTRATE 5 MG/5 ML VIAL IV ONE (00:56)
[2016-10-21] MEDS: METOPROLOL TARTRATE 5 MG/5 ML VIAL IV PRN (01:07)
[2016-10-21] MEDS: 0.9 % SODIUM CHLORIDE 1,000 ML IV SCH ×2 (02:40→10:15)
[2016-10-21] MEDS: 0.9 % SODIUM CHLORIDE 10 ML SYRINGE IV SCH ×3 (04:00→20:47)
[2016-10-21 05:58] LABS: Mean Cell Volume 95.4 fL (80.0-100.0); Mean Corpuscular HGB Conc 33.6 g/dL (31.0-36.0); Platelet Count 197 K/mcL (140-440); RBC 3.95 M/mcL (4.00-5.20); Red Cell Distribution Width 13.5 % (11.5-14.5)
[2016-10-21 06:32] LABS: ALT/SGPT 21 U/l (0-40); Albumin 2.6 gm/dL (3.2-5.2); Albumin/Globulin Ratio 1.2 (1.0-2.3); Alkaline Phosphatase 94 U/L (39-117); Bilirubin,Direct < 0.2 mg/dL (0.0-0.3); Blood Urea Nitrogen 10 mg/dl (8-23); Gamma Glutamyl Transpeptidase 101 U/L (5-36); Uric Acid 3.4 mg/dL (2.5-8.0)
[2016-10-21] MEDS: LEVOTHYROXINE SODIUM 112 MCG TABLET PO SCH (07:35)
[2016-10-21 07:39] LABS: Band Neutrophils % 16 % (0-10); Eosinophils % (Manual) 3 % (0-7); Lymphocytes % 6 % (15-49); Platelet Estimate NORMAL (NORMAL); RBC Morphology NORMAL (NORMAL); Segmented Neutrophils % 74 % (38-78)
[2016-10-21] MEDS: CEFEPIME 2 GM in DEXTROSE 5% IN WATER 50 ML IV SCH (07:41)
[2016-10-21] MEDS ORDERED: LEVOFLOXACIN 750 MG/150 ML BAG IV SCH (09:00)
[2016-10-21] MEDS ORDERED: CIPROFLOXACIN 400 MG/200 ML BAG IV SCH (09:00)
[2016-10-21] MEDS: MULTIVIT,THER IRON,CA,FA & MIN 1 TABLET PO SCH (09:42)
[2016-10-21] MEDS: METOPROLOL SUCCINATE 25 MG TAB.XL.24H PO SCH (09:42)
[2016-10-21] MEDS: SERTRALINE 50 MG TABLET PO SCH (09:42)
[2016-10-21] MEDS: HEPARIN 5,000 UNIT/ML VIAL SQ SCH ×2 (09:42→20:44)
[2016-10-21] MEDS: DOCUSATE SODIUM 100 MG CAPSULE PO SCH ×2 (10:02→20:45)
[2016-10-21] MEDS: NEUTRA PHOS 1 PACKET PO SCH ×3 (10:17→20:45)
[2016-10-21] MEDS ORDERED: IOPAMIDOL 100 ML BOTTLE IV ONE (10:27)
--- NOTE | 2016-10-21 10:51 | Cat Scan Report ---
CLINICAL INFORMATION: Abnormal renal ultrasound. Possible left renal mass TECHNIQUE: Axial noncontrast enhanced images to the abdomen. 80 mL contrast material injected. The venous phase and five minute delayed phase images obtained. Sagittally and coronally reformatted images COMPARISON: Renal ultrasound dated 10/19/2016 FINDINGS: Previous examination demonstrated a possible left solid renal mass versus prominent cortical nodule. There is a focal convexity in the left renal cortex. Appearance is consistent with a column of [place]. This enhances as normal renal cortex on both venous and delayed phase images. No evidence for renal cell carcinoma. No other renal abnormalities. The gallbladder is abnormal. No calcified gallstone. There is gallbladder wall thickening and mild pericholecystic inflammatory change and fluid. Gallbladder ultrasound is recommended. No dilated bile ducts. Common bile duct is within normal limits. No intrahepatic bile duct dilatation. Negative pancreas. No pancreatic mass. No peripancreatic abnormality. Negative spleen. No splenomegaly. Normal enhancement splenic and portal veins Adrenal glands are negative. Liver is negative. No focal intrahepatic abnormality. There are bilateral pleural effusions. There is mild bibasilar dependent atelectasis. No significant pericardial fluid. There is subcutaneous edema along both flanks. No lumbar compression fracture. IMPRESSION: 1. No renal mass. Normal enhancing renal parenchyma. Appearance is consistent with prominent cortical nodule 2. Abnormal gallbladder. Recommend gallbladder ultrasound 3. Bilateral pleural effusions. Bilateral subcutaneous edema in both flanks Interpreted and Authenticated by: John Barkley 10/21/16
--- NOTE | 2016-10-21 14:51 | Internal Med Progress Note ---
Medical - PN: Subj Patient information: Note initiated : 10/21/16 at 2:48 pm Service Date, if different from initiated Date: [] Patient: Paige Christianson 76 y/o F admitted on 10/18/16 for Weakness/ Septic Shock. Chief Complaint: [] Interval history: 10/18-patient admitted with septic shock likely from genitourinary source. Recent UTI with Escherichia coli on cultures. started On vasopressors after 2-1 /2 L crystalloids. Improving urine output. Map at goal. transferred to ICU. Broad antibiotic coverage including vancomycin, Levaquin and cefepime. [place] score 20. Very high risk mortality. Family aware 10/19- on Levophed at 10 mics. MAXIMUM TEMPERATURE 103. renal ultrasound no obstructive uropathy however 4.[address] abdomen in 24 hours for evaluation if patient clinically improves. white count at 13.2. 26% bands. lactic acid down from 3-1.4. improving renal function with creatinine 1.2-0.8. continue pressors and close hemodynamic monitoring. Patient critically ill. 10/20- patient doing well. Off pressors. No overnight events. Intermittent confusion in the setting of underlying dementia but no agitation. No telemetry events. afebrile during last 24 hours. foleys draining clear urine. October 21, 2016: -his patient was admitted with sepsis, which appears to be related to an E coli urinary tract infection. -Overnight, the patient developed a very pink,bright rash of her face and chest and ankles. Nursing staff noticed this has happened yesterday as well, and were concerned about the vancomycin. The patient at the time of exam was having some itching as well. Vancomycin was discontinued, and I gave her 1 dose of IVSolu-Medrol. -she also was having increasing agitation last evening, which we felt was probably ing due to her dementia. She was given IV Ativan, and actually got quite a good night sleep. She is feeling much better today. -We also had difficulty controlling her heart rate overnight, as she had A. fib with heart rates into the 140s and 150s. we increased her when necessary dose of IV metoprolol. Oral Toprol had been started earlier in the day. -she reports she is feeling better this morning. She denies subjective fever or chills sore throat. She has only an occasional cough. She denies chest pain or palpitations, shortness of breath, abdominal pain, nausea or vomiting, diarrhea or constipation. She still has a Martel catheter in place. past medical history is reviewed, and includes dementia, hypertension, hypothyroidism, anxiety, hyperlipidemia, reactive airways disease. - Constitutional Vitals: Vital Signs Temp Pulse Resp BP Pulse Ox 97.8 F 85 16 103/83 95 10/21/16 07:15 10/20/16 20:00 10/21/16 11:45 10/21/16 11:45 10/21/16 11:45 Period Temp Pulse Resp BP Sys/Ribeiro Pulse Ox Last 24 Hr 97.3 F-98.4 F 85-120 14-20 100-170/56-136 92-98 Intake and Output 10/21/16 10/21/16 10/21/16 05:59 13:59 21:59 Intake Total 1850 / 1850 120 / 120 Output Total 735 / 735 Balance -735 / -735 1850 / 1850 120 / 120 Intake & Output: Intake & Output 10/21/16 10/21/16 10/21/16 05:59 13:59 21:59 Intake Total 1850 / 1850 120 / 120 Output Total 735 / 735 Balance -735 / -735 1850 / 1850 120 / 120 Intake: IV 1250 / 1250 Sodium Chloride 0.9% 1, 8 / 8 000 ml @ 50 mls/hr IV . Q20H [facility] Rx#:[id number] Maxipime 2 gm In Dextrose 50 / 50 5% in Water 50 ml @ 100 mls/hr IV Q12H [facility] Rx#: [id number] Oral 600 / 600 120 / 120 Output: Urine Catheter Amount 735 / 735 Other: Meal Lunch Percent of Meal Consumed 100% # Bowel Movements 1 on exam, she is awake and alert. She is in no acute distress. neck is supple without obvious JVD. Cardiac exam shows regular rate and rhythm. Lungs are somewhat decreased at the bases but otherwise no significant rales, rhonchi, wheezes are noted. Abdomen is soft and nontender, with active bowel sounds. Extremities show no cyanosis or edema. Skin: Last night, she had a bright red rash of her ankles and face. The ankle rash had some associated petechiae. This morning, the facial rash is essentially gone. The rash on her ankles is markedly faded. Neurologic exam: Is grossly nonfocal, but she is quite forgetful. Medical - PN: Obj Da - Labs CBC & Chem 7: 10/21/16 04:45 10/21/16 04:45 Labs: Abnormal Lab Results 10/21/16 10/21/16 10/20/16 04:45 04:45 03:55 WBC RBC 3.95 L Hct MPV Band Neutrophils % 16 H Lymphocytes % 6 L Metamyelocytes % Chloride 109 H Carbon Dioxide Anion Gap 7.0 L Creatinine 0.4 L 0.5 L Glucose 127 H Calcium 8.1 L 7.6 L Phosphorus 1.6 L 1.1 L Total Bilirubin Direct Bilirubin GGT 101 H 78 H Total Protein 4.8 L 4.5 L Albumin 2.6 L 2.0 L Albumin/Globulin Ratio 0.8 L 10/20/16 10/19/16 10/19/16 03:55 04:22 04:11 WBC 13.2 H RBC 3.74 L Hct 35.5 L MPV 7.3 L Band Neutrophils % 35 H 26 H Lymphocytes % 2 L 1 L Metamyelocytes % 1 H Chloride Carbon Dioxide 20 L Anion Gap Creatinine Glucose 155 H Calcium 7.8 L Phosphorus 2.4 L Total Bilirubin 1.1 H Direct Bilirubin 0.6 H GGT 63 H Total Protein 5.2 L Albumin 2.6 L Albumin/Globulin Ratio I and O measurements do indicate that she is about 8 L ahead on fluids. October 21: CT of the abdomen:no renal masses seen. There is a prominent cortical nodule. Gallbladder appears abnormal, ultrasound recommended. Bilateral pleural effusions and subcutaneous edema noted in both flanks. October 20: -C. difficile screen was negative. -chest x-ray shows increasing infiltrates and probable pleural fluid. October 19: Blood cultures are negative so far. October 18: 1 bottle of blood cultures grew coag negative staph, considered to be a contaminant. October 18:Renal ultrasound showed a possible solid mass in the left kidney. No stones or hydronephrosis was noted. Meds: Medications Acetaminophen (Tylenol) 650 mg PO Q4-6HP PRN PRN Reason: PAIN/FEVER > 101 Docusate Sodium (Colace) 100 mg PO BID [facility] Last Admin: 10/21/16 10:02 Dose: Not Given Heparin Sodium (Porcine) (Heparin) 5,000 unit SQ Q12 [facility] Last Admin: 10/21/16 09:42 Dose: 5,000 unit Magnesium Sulfate (Magnesium Sulfate) 2 gm in 50 mls @ 50 mls/hr IV UD PRN PRN Reason: MG = or < 1.7 Sodium Chloride (Sodium Chloride 0.9%) 1,000 mls @ 50 mls/hr IV .Q20H [facility] Last Infusion: 10/21/16 12:00 Dose: 50 mls/hr Ciprofloxacin (Cipro) 400 mg in 200 mls @ 200 mls/hr IV Q12H [facility] Last Infusion: 10/21/16 12:00 Dose: Infused Iron Carb/Multivit/[employer]/Folic Acid (Multivitamin W/Minerals) 1 tab PO DAILY [facility] Last Admin: 10/21/16 09:42 Dose: 1 tab Levothyroxine Sodium (Synthroid) 112 mcg PO QAMAC [facility] Last Admin: 10/21/16 07:35 Dose: 112 mcg Lorazepam (Ativan) 0.5 mg PO Q4HP PRN PRN Reason: ANXIETY/SEDATION Last Admin: 10/20/16 21:16 Dose: 0.5 mg Lorazepam (Ativan) 0.5 mg IV Q4HP PRN PRN Reason: ANXIETY/SEDATION Metoprolol Succinate (Toprol Xl) 25 mg PO DAILY [facility] Last Admin: 10/21/16 09:42 Dose: 25 mg Metoprolol Tartrate (Lopressor) 5 mg IV Q2HP PRN PRN Reason: Tachyarrhythmias Last Admin: 10/21/16 01:07 Dose: 5 mg Ondansetron HCl (Zofran) 4 mg IV Q4-6HP PRN PRN Reason: Nausea And Vomiting Donepezil Hcl [ Aricept] 23 Mg Tablet 1 dose PO DAILY [facility] Last Admin: 10/21/16 09:45 Dose: 1 dose Potassium Chloride (Klor-Con) 40 meq PO DAILYP PRN PRN Reason: K+ < 3.5 Potassium/Phosphorus/Sodium (Neutra Phos) 2 packet PO TID [facility] Stop: 10/21/16 21:01 Last Admin: 10/21/16 14:34 Dose: 2 packet Senna/Docusate Sodium (Senna Plus Tablet) 1 tab PO HS [facility] Last Admin: 10/20/16 21:46 Dose: Not Given Sertraline HCl (Zoloft) 25 mg PO DAILY [facility] Last Admin: 10/21/16 09:42 Dose: 25 mg Simvastatin (Zocor) 20 mg PO HS [facility] Last Admin: 10/20/16 21:03 Dose: 20 mg Sodium Chloride (Saline Flush) 10 ml IV UD PRN PRN Reason: FLUSH Sodium Chloride (Saline Flush) 10 ml IV Q8 [facility] Last Admin: 10/21/16 04:00 Dose: 10 ml Medical - PN: A/P - Time Spent With Patient Total time spent is greater than 50% in coordination of care (as documented) at patient's floor/unit and/or counseling patient: Greater than 35 minutes - Narrative A/P Narrative: #1. Infectious disease. Sepsis.- -this patient presented with signs of sepsis. She was initially treated aggressively with IV fluids, vancomycin, cefepime, Levaquin, vasopressors. Sepsis has now resolved. Vital signs are much improved. -Urine culture grew Escherichia coli, which is pansensitive. I have discontinued all antibiotics today, and then added IV ciprofloxacin. -The one bottle of blood cultures that grew staph epi, is considered a contaminant. #2.Cardiac. - atrial fibrillation. We had some difficulties controlling her rate overnight. his is much improved today, now that she has resumed her Toprol. She may also be mobilizing fluids, and this may be increasing atrial stretch. he was given 1 dose of amiodarone initially, as well as IV diltiazem, at admission, but seems to be responding to beta blockers now. -she may be a bit volume overloaded, but has continued IV fluids due to very poor by mouth intake. We may need to discontinue these, and start pushing diuresis a bit. #3. Neurologic. -dementia. She did have some agitation last night, but this was well managed with low-dose Ativan This was reviewed with her daughter as well and she is in agreement with this management. The patient did seem to have a much better night's sleep last night, and is more alert today.ontinue donepezil. -Anxiety. Continue when necessary Ativan.continue sertraline. #4. CODE STATUS: DNR. #5. Disposition: The patient generally is cared for by her daughter. Her daughter notes she has been declining much more lately, and has not yet decided if she can still handle her mother at home. at any rate, she would likely require rehabilitation for strengtheningat discharge. #6.hypertension. Blood pressures are running in the low normal range currently.resume HCTZas tolerated. #7.reactive airways disease. Continue nebulizers when necessary #8. Hyperlipidemia. #9. Hypothyroidism. Continue Synthroid. #10. The patient is developing a red face again this evening, and it is not clear if this could be due to ciprofloxacin. All other antibiotics were discontinued. Her Escherichia coli UTIorganism is pansensitive. e could consider a trial of nitrofurantoin or Bactrim. Ancef might also be useful. She is reportedly allergic to penicillin, and now we are not sureif she was having a reaction to vancomycin, cefepime, or Levaquin. this visit took approximately 40 minutes today,to review her test results, interview and examine her, review plan of care with nursing several times, and write orders. Medical - PN: Qual - VTE Deep Vein Thrombosis/Pulmonary Embolism Present on Admission: No
[2016-10-21] MEDS: LORazepam 0.5 MG TABLET PO PRN (20:44)
[2016-10-21] MEDS: SIMVASTATIN 20 MG TABLET PO SCH (20:45)
[2016-10-21] MEDS: SENNOSIDES/DOCUSATE SODIUM 1 TAB TABLET PO SCH (20:46)
[2016-10-21] MEDS: NITROFURANTOIN SR 100 MG CAPSULE PO SCH (20:46)
[2016-10-22 05:36] LABS: Mean Corpuscular HGB Conc 33.9 g/dL (31.0-36.0); Mean Corpuscular Hemoglobin 32.2 pg (26.0-34.0); Platelet Count 219 K/mcL (140-440); RBC 3.44 M/mcL (4.00-5.20)
[2016-10-22 06:01] LABS: ALT/SGPT 22 U/l (0-40); Albumin 2.3 gm/dL (3.2-5.2); Alkaline Phosphatase 64 U/L (39-117); Bilirubin,Direct < 0.2 mg/dL (0.0-0.3); Blood Urea Nitrogen 18 mg/dl (8-23); Gamma Glutamyl Transpeptidase 86 U/L (5-36); Magnesium 2.1 mg/dL (1.6-2.5); Uric Acid 3.3 mg/dL (2.5-8.0)
[2016-10-22 06:37] LABS: Band Neutrophils % 1 % (0-10); Eosinophils % (Manual) 2 % (0-7); Lymphocytes % 13 % (15-49); Monocytes % (Manual) 5 % (1-12); Platelet Estimate NORMAL (NORMAL); RBC Morphology NORMAL (NORMAL); Segmented Neutrophils % 68 % (38-78)
[2016-10-22] MEDS: 0.9 % SODIUM CHLORIDE 10 ML SYRINGE IV SCH ×3 (07:00→21:01)
[2016-10-22] MEDS: LEVOTHYROXINE SODIUM 112 MCG TABLET PO SCH (07:36)
[2016-10-22] MEDS: 0.9 % SODIUM CHLORIDE 1,000 ML IV SCH (07:46)
[2016-10-22] MEDS: METOPROLOL SUCCINATE 25 MG TAB.XL.24H PO SCH (08:47)
[2016-10-22] MEDS: SERTRALINE 50 MG TABLET PO SCH (08:47)
[2016-10-22] MEDS: MULTIVIT,THER IRON,CA,FA & MIN 1 TABLET PO SCH (08:47)
[2016-10-22] MEDS: NITROFURANTOIN SR 100 MG CAPSULE PO SCH ×2 (08:48→21:00)
[2016-10-22] MEDS: HEPARIN 5,000 UNIT/ML VIAL SQ SCH ×2 (08:48→21:01)
[2016-10-22] MEDS ORDERED: FUROSEMIDE 20 MG/2 ML VIAL IV ONE (08:51)
[2016-10-22] MEDS: DOCUSATE SODIUM 100 MG CAPSULE PO SCH ×2 (09:12→21:01)
[2016-10-22] MEDS: SPIRONOLACTONE 25 MG TABLET PO SCH (10:15)
[2016-10-22] MEDS: NEUTRA PHOS 1 PACKET PO SCH ×2 (10:59→21:00)
--- NOTE | 2016-10-22 11:01 | Ultrasound Report ---
CLINICAL INFORMATION: Abdominal pain. Leukocytosis. Abnormal gallbladder demonstrated on previous ultrasound TECHNIQUE: Grayscale and color flow spectral imaging COMPARISON: Abdominal CT scan dated 10/21/2016 FINDINGS: Abnormal gallbladder. Gallbladder wall is thickened and measures 6 mm. There is trace pericholecystic fluid. No detectable gallbladder mass or calculus. Gallbladder is contracted. It was difficult to assess whether or not there was tenderness as this patient was confused. No dilated intrahepatic bile ducts. Common bile duct measures 6.9 mm. No detectable choledocholithiasis. Liver measures 15 cm. No focal solid mass or significant abnormality. Incidental note is made of a 9 mm cyst. Normal smooth liver contour. No discrete mass. No ascites. Visualized portions of the pancreas are negative. IMPRESSION: 1. Contracted gallbladder 2. Diffusely thickened gallbladder wall and mild pericholecystic fluid. No cholelithiasis. 3. Prominent common bile duct. No intrahepatic bile duct dilatation Interpreted and Authenticated by: John Barkley 10/22/16
--- NOTE | 2016-10-22 11:07 | Internal Med Progress Note ---
Medical - PN: Subj Patient information: Note initiated : 10/22/16 at 11:07 am Service Date, if different from initiated Date: [] Patient: Paige Christianson 76 y/o F admitted on 10/18/16 for Weakness/ Septic Shock. Chief Complaint: [] Interval history: 10/18-patient admitted with septic shock likely from genitourinary source. Recent UTI with Escherichia coli on cultures. started On vasopressors after 2-1 /2 L crystalloids. Improving urine output. Map at goal. transferred to ICU. Broad antibiotic coverage including vancomycin, Levaquin and cefepime. Baldwin score 20. Very high risk mortality. Family aware 10/19- on Levophed at 10 mics. MAXIMUM TEMPERATURE 103. renal ultrasound no obstructive uropathy however 4.[address] abdomen in 24 hours for evaluation if patient clinically improves. white count at 13.2. 26% bands. lactic acid down from 3-1.4. improving renal function with creatinine 1.2-0.8. continue pressors and close hemodynamic monitoring. Patient critically ill. 10/20- patient doing well. Off pressors. No overnight events. Intermittent confusion in the setting of underlying dementia but no agitation. No telemetry events. afebrile during last 24 hours. foleys draining clear urine. October 21, 2016: -his patient was admitted with sepsis, which appears to be related to an E coli urinary tract infection. -Overnight, the patient developed a very pink,bright rash of her face and chest and ankles. Nursing staff noticed this has happened yesterday as well, and were concerned about the vancomycin. The patient at the time of exam was having some itching as well. Vancomycin was discontinued, and I gave her 1 dose of IVSolu-Medrol. -she also was having increasing agitation last evening, which we felt was probably ing due to her dementia. She was given IV Ativan, and actually got quite a good night sleep. She is feeling much better today. -We also had difficulty controlling her heart rate overnight, as she had A. fib with heart rates into the 140s and 150s. we increased her when necessary dose of IV metoprolol. Oral Toprol had been started earlier in the day. -she reports she is feeling better this morning. She denies subjective fever or chills sore throat. She has only an occasional cough. She denies chest pain or palpitations, shortness of breath, abdominal pain, nausea or vomiting, diarrhea or constipation. She still has a Martel catheter in place. past medical history is reviewed, and includes dementia, hypertension, hypothyroidism, anxiety, hyperlipidemia, reactive airways disease. October 22, 2016: -The patient has done well overnight. she did apparently complain of some abdominal discomfort later yesterday evening, but that seemed to settle down. Her nurses report that she had a very mucousy stool, that was guaiac positive, last night. Today she had a formed brown stool, that was guaiac negative. CT scan from yesterday showed gallbladder wall thickening and mild. Cholecystic inflammatory changes and fluid. -she was given Ativan again last night, and slept well. She says she feels fine this morning. She denies subjective fever or chills, shortness of breath or cough, chest pain or palpitations. She initially says she has no abdominal discomfort and then later says she has some cramping that makes her feel like she has to have a BM. Again, her history is unreliable because of her significant memory loss. Martel catheter remains in place. Her total white blood cell count has bumped up today,but the percentage of bands has dropped. GGT has remained elevated, but is lower than yesterday. The patient is beginning to take more solid food, and seems to be tolerating this. -her face is again flushed today, but she does not have the intense redness of her face or ankles today that was there yesterday. She is now only on IV ciprofloxacinfor antibiotics.- -Heart rate has been well controlled overnight. - Constitutional Vitals: Vital Signs Temp Pulse Resp BP Pulse Ox 97.4 F 66 16 125/70 97 10/22/16 07:39 10/22/16 07:39 10/22/16 07:39 10/22/16 07:39 10/22/16 07:00 Period Temp Pulse Resp BP Sys/Ribeiro Pulse Ox Last 24 Hr 97.4 F-98.0 F 66-92 16-18 103-126/53-83 94-97 Intake and Output 10/21/16 10/22/16 10/22/16 21:59 05:59 13:59 Intake Total 460 / 460 240 / 240 1788 / 1788 Output Total 450 / 450 175 / 175 Balance 10 240 / 240 1613 / 1613 Weight 214 lb 9.6 oz Intake & Output: Intake & Output 10/21/16 10/22/16 10/22/16 21:59 05:59 13:59 Intake Total 460 / 460 240 / 240 1788 / 1788 Output Total 450 / 450 175 / 175 Balance 10 240 / 240 1613 / 1613 Weight 214 lb 9.6 oz Intake: IV 988 / 988 Sodium Chloride 0.9% 1, 988 / 988 000 ml @ 50 mls/hr IV . Q20H [facility] Rx#:[id number] Oral 460 / 460 240 / 240 800 / 800 Output: Urine Catheter Amount 450 / 450 Stool 175 / 175 Other: Meal Dinner Breakfast Percent of Meal Consumed 50% 50% Feeding Ability Assist with Tray Set Up Independent # Bowel Movements 1 on exam, the patient is awake and alert, and appears comfortable. Neck shows no obvious JVD or lymphadenopathy. cardiac examshows a slightly irregular rhythm, with controlled rate. Lungs:Are clear to auscultation. No wheezing is heard today. abdomen: Soft,nontender, without guarding or rebound. Bowel sounds are active. Extremities: 2-3+pitting dependent edema. Skin: face and ankles are pale pink, improved compared to yesterday. Neurologic: Patient is quite forgetful but otherwise calm and cooperative. Motor exam is grossly nonfocal. Medical - PN: Obj Da - Labs CBC & Chem 7: 10/22/16 04:04 10/22/16 04:04 Labs: Abnormal Lab Results 10/22/16 10/22/16 10/21/16 04:04 04:04 04:45 WBC 13.5 H RBC 3.44 L Hgb 11.1 L Hct 32.7 L Band Neutrophils % Lymphocytes % 13 L Reactive Lymphocytes 11 H Chloride Anion Gap Creatinine 0.5 L 0.4 L Glucose 116 H 127 H Calcium 8.0 L 8.1 L Phosphorus 2.2 L 1.6 L GGT 86 H 101 H Total Protein 4.5 L 4.8 L Albumin 2.3 L 2.6 L Albumin/Globulin Ratio 10/21/16 10/20/16 10/20/16 04:45 03:55 03:55 WBC RBC 3.95 L 3.74 L Hgb Hct 35.5 L Band Neutrophils % 16 H 35 H Lymphocytes % 6 L 2 L Reactive Lymphocytes Chloride 109 H Anion Gap 7.0 L Creatinine 0.5 L Glucose Calcium 7.6 L Phosphorus 1.1 L GGT 78 H Total Protein 4.5 L Albumin 2.0 L Albumin/Globulin Ratio 0.8 L (I and O measurements do indicate that she is about 9.6 L ahead on fluids.) October 22:; GB ultrasound:Diffusely thickened gallbladder wall and mild pericholecystic fluid. No cholelithiasis. Prominent common bile duct. October 21: CT of the abdomen:no renal masses seen. There is a prominent cortical nodule. Gallbladder appears abnormal, ultrasound recommended. Bilateral pleural effusions and subcutaneous edema noted in both flanks. October 20: -C. difficile screen was negative. -chest x-ray shows increasing infiltrates and probable pleural fluid. October 19: Blood cultures are negative so far. October 18: 1 bottle of blood cultures grew coag negative staph, considered to be a contaminant. October 18:Renal ultrasound showed a possible solid mass in the left kidney. No stones or hydronephrosis was noted. Meds: Medications Acetaminophen (Tylenol) 650 mg PO Q4-6HP PRN PRN Reason: PAIN/FEVER > 101 Docusate Sodium (Colace) 100 mg PO BID [facility] Last Admin: 10/22/16 09:12 Dose: Not Given Heparin Sodium (Porcine) (Heparin) 5,000 unit SQ Q12 [facility] Last Admin: 10/22/16 08:48 Dose: 5,000 unit Magnesium Sulfate (Magnesium Sulfate) 2 gm in 50 mls @ 50 mls/hr IV UD PRN PRN Reason: MG = or < 1.7 Sodium Chloride (Sodium Chloride 0.9%) 1,000 mls @ 50 mls/hr IV .Q20H [facility] Last Admin: 10/22/16 07:46 Dose: 50 mls/hr Iron Carb/Multivit/[place]/Folic Acid (Multivitamin W/Minerals) 1 tab PO DAILY [facility] Last Admin: 10/22/16 08:47 Dose: 1 tab Levothyroxine Sodium (Synthroid) 112 mcg PO QAMAC [facility] Last Admin: 10/22/16 07:36 Dose: 112 mcg Lorazepam (Ativan) 0.5 mg PO Q4HP PRN PRN Reason: ANXIETY/SEDATION Last Admin: 10/21/16 20:44 Dose: 0.5 mg Lorazepam (Ativan) 0.5 mg IV Q4HP PRN PRN Reason: ANXIETY/SEDATION Metoprolol Succinate (Toprol Xl) 25 mg PO DAILY [facility] Last Admin: 10/22/16 08:47 Dose: 25 mg Metoprolol Tartrate (Lopressor) 5 mg IV Q2HP PRN PRN Reason: Tachyarrhythmias Last Admin: 10/21/16 01:07 Dose: 5 mg Nitrofurantoin Macrocrystals (Macrobid) 100 mg PO BID [facility] Last Admin: 10/22/16 08:48 Dose: 100 mg Ondansetron HCl (Zofran) 4 mg IV Q4-6HP PRN PRN Reason: Nausea And Vomiting Donepezil Hcl [ Aricept] 23 Mg Tablet 1 dose PO DAILY [facility] Last Admin: 10/22/16 08:48 Dose: 1 dose Potassium Chloride (Klor-Con) 40 meq PO DAILYP PRN PRN Reason: K+ < 3.5 Potassium/Phosphorus/Sodium (Neutra Phos) 2 packet PO BID [facility] Last Admin: 10/22/16 10:59 Dose: 2 packet Senna/Docusate Sodium (Senna Plus Tablet) 1 tab PO HS [facility] Last Admin: 10/21/16 20:46 Dose: 1 tab Sertraline HCl (Zoloft) 25 mg PO DAILY [facility] Last Admin: 10/22/16 08:47 Dose: 25 mg Simvastatin (Zocor) 20 mg PO HS [facility] Last Admin: 10/21/16 20:45 Dose: 20 mg Sodium Chloride (Saline Flush) 10 ml IV UD PRN PRN Reason: FLUSH Sodium Chloride (Saline Flush) 10 ml IV Q8 [facility] Last Admin: 10/22/16 07:00 Dose: Not Given Spironolactone (Aldactone) 50 mg PO DAILY [facility] Last Admin: 10/22/16 10:15 Dose: 50 mg Medical - PN: A/P - Time Spent With Patient Total time spent is greater than 50% in coordination of care (as documented) at patient's floor/unit and/or counseling patient: - Narrative A/P Narrative: #1. Infectious disease. Sepsis.- -this patient presented with signs of sepsis. She was initially treated aggressively with IV fluids, vancomycin, cefepime, Levaquin, vasopressors. Sepsis has now resolved. Vital signs are much improved. -Urine culture grew Escherichia coli, which is pansensitive. I discontinued all antibiotics yesterday, and then added IV ciprofloxacin. However, this was changed to by mouth nitrofurantoin, after she continued to experience a rash. -The one bottle of blood cultures that grew staph epi, is considered a contaminant. -Today, white blood cell count is increased. Gallbladder ultrasound is suggestive of some inflammation. I have asked Dr. Isaac of surgery, to review this case with me later today. We assumed that patient's sepsis was related to UTI, but there is a possibility of cholecystitis causing her sepsis. #2.Cardiac. - atrial fibrillation. This is much improved today, now that she has resumed her Toprol. ( She may also be mobilizing fluids, and this may be increasing atrial stretch. he was given 1 dose of amiodarone initially, as well as IV diltiazem, at admission, but seems to be responding to beta blockers now.) -I have restarted oral spironolactone today, and we'll give 1 dose of IV Lasix o help with fluid mobilization. i will likely add back her normal HCTZ tomorrow #3. Neurologic. -dementia. She did have some agitation , but this was well managed with low- dose Ativan This was reviewed with her daughter as well and she is in agreement with this management. Continue donepezil. -Anxiety. Continue when necessary Ativan.continue sertraline. #4. CODE STATUS: DNR. #5. Disposition: The patient generally is cared for by her daughter. Her daughter notes she has been declining much more lately, and has not yet decided if she can still handle her mother at home. at any rate, she would likely require rehabilitation for strengthening at discharge. #6.hypertension. Blood pressures are running in the low normal range currently. resume Aldactone today. consider adding back HCTZ tomorrow. #7.reactive airways disease. Continue nebulizers when necessary. Lungs sound fairly clear this morning. #8. Hyperlipidemia. #9. Hypothyroidism. Continue Synthroid. #10. Skin. The patient had intense redness of her face and ankles 2 days ago, and we thought this was a "red man syndrome" from her vancomycin. However it seemed to recur, to a milder degree, after the vancomycin was discontinued. I then discontinued cefepime and Levaquin. Cipro was started for her UTI which appears to be pansensitive on but in view of the redness, I changed this to oral nitrofurantoin. this visit took approximately 35 minutes today,to review her test results, review sonogram with the tech and nursing staff, interview and examine her, review plan of care with nursing , and write orders. also I will review the case with Dr. Isaac in more detail later today. Medical - PN: Qual - VTE Deep Vein Thrombosis/Pulmonary Embolism Present on Admission: No
--- NOTE | 2016-10-22 14:03 | General Surgery Consult Note ---
History of Present Illness Patient information: Note initiated : 10/22/16 at 1:58 pm Service Date, if different from initiated Date: [] Patient: Paige Christianson 76 y/o F admitted on 10/18/16 for Weakness/ Septic Shock. Chief Complaint: [] Reason for consult: other (ABNORMAL GALLBLADDER FINDINGS ON ULTRASOUND AND ct OF ABDOMEN) History of present illness: 76-YEAR-OLD FEMALE WHO IS BEING EVALUATED BECAUSE OF LEUKOCYTOSIS AND ABNORMAL GALLBLADDER NOTED ON ct SCAN AND UPPER ABDOMINAL ULTRASOUND. tHE PATIENT WAS ADMITTED WITH UROSEPSIS DUE TO ESCHERICHIA COLI. sHE HAS BEEN TREATED AND IS IMPROVED. sHE IS NO LONGER ON PRESSORS. hER WHITE COUNT WAS NORMAL BUT WAS ELEVATED TODAY. SHE HAD A ct SCAN OF THE ABDOMEN WHICH SHOWED CIRCUMFERENTIAL THICKENING OF THE GALLBLADDER WALL WITHOUT STONES, PERICHOLECYSTIC FLUID, PERIHEPATIC FLUID. uLTRASOUND SHOWS THICKENED GALLBLADDER WALL WITHOUT STONES. tHE PATIENT DENIES ABDOMINAL PAIN AND SHE IS EATING A REGULAR DIET WITHOUT NAUSEA OR VOMITING. sHE DOES NOT HAVE ABDOMINAL TENDERNESS. dUE TO HER DEMENTIA i CANNOT OBTAIN ANY HISTORY THAT'S RELIABLE RELATED TO PRIOR ABDOMINAL DISCOMFORT. oN REVIEW OF HER EMERGENCY ROOM NOTES SHE HAS NOT COMPLAINED OF ABDOMINAL PAIN WHEN SEEN IN THE EMERGENCY ROOM. tHE PATIENT ALSO HAS HYPOALBUMINEMIA WITH ANASARCA AND ASSOCIATED BILATERAL PLEURAL EFFUSIONS WELL PERIHEPATIC FLUID AND SOME FLUID IN THE RIGHT GUTTER. sHE HAS SIGNIFICANT EDEMA OF HER SUBCUTANEOUS TISSUE ALSO. Review of Systems ROS unobtainable: due to mental status, other (SHE SPECIFICALLY DENIES ABDOMINAL DISCOMFORT AT ANY TIME) Past History Past medical history: DEMENTIA tHYROID DISEASE Past surgical history: NONE RECORDED AND PATIENT DENIES Past family history: NOT OBTAINABLE Past social history: NEVER SMOKER nO ALCOHOL USE NO DRUG USE Medications and Allergies Home Medications Medication Instructions Recorded Confirmed Type Hydrochlorothiazide [Oretic] 50 mg PO DAILY 11/04/15 10/18/16 History Sertraline HCl [Zoloft] 25 mg PO DAILY 11/04/15 10/18/16 History Simvastatin [Zocor] 20 mg PO DAILY 11/04/15 10/18/16 History Sulfamethoxazole/Trimethoprim 1 each PO BID #14 tablet 10/16/16 10/18/16 Rx [Bactrim Ds Tablet] Donepezil HCl [Aricept] 23 mg PO DAILY 10/19/16 10/19/16 History Levothyroxine Sodium [Levoxyl] 137 mcg PO ACB 10/19/16 10/19/16 History Metoprolol Succinate 25 mg PO DAILY 10/19/16 10/19/16 History Spironolactone [Aldactone] 50 mg PO DAILY 10/19/16 10/19/16 History Allergies Allergy/AdvReac Type Severity Reaction Status Date / Time bacitracin [BACITRACIN] Allergy Mild RASH TO Verified 10/18/16 13:30 TOPICAL codeine [CODEINE] Allergy Mild RASH A Verified 10/18/16 13:30 CHILD ciprofloxacin AdvReac Intermediate Rash Verified 10/21/16 16:34 vancomycin AdvReac Intermediate Rash Verified 10/21/16 15:01 Penicillins [PENICILLINS] AdvReac Mild Rash Verified 10/18/16 13:30 BEE STING Allergy Severe Anaphylaxis Uncoded 11/05/14 12:37 ADHESIVE TAPE Allergy Intermediate Rash Uncoded 11/05/14 12:37 Exam Temp Pulse Resp BP Pulse Ox 96.8 F L 71 16 115/59 97 10/22/16 12:17 10/22/16 11:58 10/22/16 11:58 10/22/16 11:58 10/22/16 07:00 - General physical appearance well developed, well nourished, no distress, no pain, chronically ill, obese - Eyes PERRL, normal ocular movement - ENT normal pinna, normal nares, normal mucosa, no hearing loss, no congestion - Head Head exam IM: Present: atraumatic, normocephalic - Neck no masses, no bruits, trachea midline, no lymphadectomy, no venous distension - Cardiovascular Cardiovascular exam IM: Present: normal rate and rhythm, RRR, +S1, +S2. Absent : JVD - Respiratory normal expansion, normal respiratory effort, clear to percussion, clear to auscultation, other (DECREASED BREATH SOUNDS AT BOTH BASES) - Abdomen Abdomen: Present: soft (OBESE NONTENDER TO DEEP PALPATION. aCTIVE BOWEL SOUNDS. nO EPIGASTRIC o RIGHT UPPER QUADRANT TENDERNESS), non tender, bowel sounds Hernia: Present: none - Integumentary Present: no rash, no growths, no abnormal pigmentation - Neurologic Present: normal coordination, normal sensation, memory loss - Musculoskeletal Present: other (AIT AND POSTURE NOT TESTED) - Psychiatric Present: speech is normal Results - Labs 10/22/16 04:04 10/22/16 04:04 Abnormal lab results 10/22/16 10/22/16 Range/Units 04:04 04:04 WBC 13.5 H (4.5-11.0) K/mcL RBC 3.44 L (4.00-5.20) M/mcL Hgb 11.1 L (12.0-15.0) g/dL Hct 32.7 L (36.0-48.0) % Lymphocytes % 13 L (15-49) % Reactive Lymphocytes 11 H (0-2) % Creatinine 0.5 L (0.6-1.1) mg/dl Glucose 116 H (70-105) mg/dL Calcium 8.0 L (8.6-10.4) mg/dl Phosphorus 2.2 L (2.7-4.5) mg/dL GGT 86 H (5-36) U/L Total Protein 4.5 L (5.9-8.4) gm/dL Albumin 2.3 L (3.2-5.2) gm/dL Diabetes panel 10/22/16 Range/Units 04:04 Sodium 140 (133-145) mmol/L Potassium 4.2 (3.3-5.1) mmol/L Chloride 105 (96-108) mmol/L Carbon Dioxide 27 (22-30) mmol/L BUN 18 (8-23) mg/dl Creatinine 0.5 L (0.6-1.1) mg/dl Glucose 116 H (70-105) mg/dL Calcium 8.0 L (8.6-10.4) mg/dl AST 20 (0-37) U/l ALT 22 (0-40) U/l Alkaline Phosphatase 64 (39-117) U/L Total Protein 4.5 L (5.9-8.4) gm/dL Albumin 2.3 L (3.2-5.2) gm/dL Triglycerides 105 (<150) mg/dl Calcium panel 10/22/16 10/22/16 Range/Units 04:04 09:09 Calcium 8.0 L (8.6-10.4) mg/dl Ionized Calcium [place] 1.17 (1.16-1.32) mmol/L Phosphorus 2.2 L (2.7-4.5) mg/dL Albumin 2.3 L (3.2-5.2) gm/dL Pituitary panel 10/22/16 Range/Units 04:04 Sodium 140 (133-145) mmol/L Potassium 4.2 (3.3-5.1) mmol/L Chloride 105 (96-108) mmol/L Carbon Dioxide 27 (22-30) mmol/L BUN 18 (8-23) mg/dl Creatinine 0.5 L (0.6-1.1) mg/dl Glucose 116 H (70-105) mg/dL Calcium 8.0 L (8.6-10.4) mg/dl Adrenal panel 10/22/16 Range/Units 04:04 Sodium 140 (133-145) mmol/L Potassium 4.2 (3.3-5.1) mmol/L Chloride 105 (96-108) mmol/L Carbon Dioxide 27 (22-30) mmol/L BUN 18 (8-23) mg/dl Creatinine 0.5 L (0.6-1.1) mg/dl Glucose 116 H (70-105) mg/dL Calcium 8.0 L (8.6-10.4) mg/dl Total Bilirubin 0.2 (0.0-1.0) mg/dL AST 20 (0-37) U/l ALT 22 (0-40) U/l Alkaline Phosphatase 64 (39-117) U/L Total Protein 4.5 L (5.9-8.4) gm/dL Albumin 2.3 L (3.2-5.2) gm/dL All other labs normal. Assessment and Plan (1) Abnormal abdominal ultrasound THE RADIOGRAPHIC AND ULTRASONOGRAPHIC FINDINGS OF THE GALLBLADDER MORE SUGGESTIVE OF HER GENERALIZED ANASARCA. tHERE ARE NO PHYSICAL FINDINGS TO SUGGEST ACUTE CHOLECYSTITIS. sINCE SHE DOES NOT HAVE STONES SHE WOULD BE A LOT MORE TOXIC IF SHE HAD ACUTE ACALCULOUS CHOLECYSTITIS. aBDOMINAL EXAM IS ENTIRELY BENIGN AND IS NOT COMMENSURATE WITH THE EDEMA THAT IS SEEN IN THE GALLBLADDER WALL. i FEEL COMFORTABLE THAT SHE DOES NOT HAVE ACUTE CHOLECYSTITIS AND DOES NOT NEED FURTHER WORKUP OF THIS PROBLEM. Status: Acute (2) Abnormal abdominal CT scan Status: Acute (3) Urosepsis Status: Acute (4) Dementia Status: Acute
[2016-10-22] MEDS: LORazepam 0.5 MG TABLET PO PRN (21:01)
[2016-10-22] MEDS: SIMVASTATIN 20 MG TABLET PO SCH (21:01)
[2016-10-22] MEDS: SENNOSIDES/DOCUSATE SODIUM 1 TAB TABLET PO SCH (21:01)
[2016-10-23 05:38] LABS: Mean Cell Volume 95.1 fL (80.0-100.0); Mean Corpuscular HGB Conc 33.6 g/dL (31.0-36.0); Platelet Count 243 K/mcL (140-440); RBC 3.65 M/mcL (4.00-5.20); Red Cell Distribution Width 13.9 % (11.5-14.5)
[2016-10-23] MEDS: 0.9 % SODIUM CHLORIDE 1,000 ML IV SCH (05:57)
[2016-10-23 05:58] LABS: ALT/SGPT 31 U/l (0-40); Albumin 2.3 gm/dL (3.2-5.2); Albumin/Globulin Ratio 0.9 (1.0-2.3); Alkaline Phosphatase 63 U/L (39-117); Bilirubin,Direct < 0.2 mg/dL (0.0-0.3); Blood Urea Nitrogen 12 mg/dl (8-23); Gamma Glutamyl Transpeptidase 79 U/L (5-36); Magnesium 1.8 mg/dL (1.6-2.5); Uric Acid 3.4 mg/dL (2.5-8.0)
[2016-10-23] MEDS: 0.9 % SODIUM CHLORIDE 10 ML SYRINGE IV SCH ×3 (05:58→21:16)
[2016-10-23 06:34] LABS: Eosinophils % (Manual) 5 % (0-7); Lymphocytes % 43 % (15-49); Monocytes % (Manual) 5 % (1-12); Platelet Estimate NORMAL (NORMAL); RBC Morphology NORMAL (NORMAL); Segmented Neutrophils % 47 % (38-78)
[2016-10-23] MEDS: LEVOTHYROXINE SODIUM 112 MCG TABLET PO SCH (08:40)
[2016-10-23] MEDS: SPIRONOLACTONE 25 MG TABLET PO SCH (09:16)
[2016-10-23] MEDS: NITROFURANTOIN SR 100 MG CAPSULE PO SCH ×2 (09:16→20:11)
[2016-10-23] MEDS: MULTIVIT,THER IRON,CA,FA & MIN 1 TABLET PO SCH (09:16)
[2016-10-23] MEDS: SERTRALINE 50 MG TABLET PO SCH (09:19)
[2016-10-23] MEDS: METOPROLOL SUCCINATE 25 MG TAB.XL.24H PO SCH (09:20)
[2016-10-23] MEDS: DOCUSATE SODIUM 100 MG CAPSULE PO SCH ×2 (09:20→20:13)
[2016-10-23] MEDS: HEPARIN 5,000 UNIT/ML VIAL SQ SCH ×2 (09:21→20:12)
[2016-10-23] MEDS: NEUTRA PHOS 1 PACKET PO SCH ×2 (09:21→20:11)
--- NOTE | 2016-10-23 12:43 | Internal Med Progress Note ---
Medical - PN: Subj Patient information: Note initiated : 10/23/16 at 12:43 pm Service Date, if different from initiated Date: [] Patient: Paige Christianson 76 y/o F admitted on 10/18/16 for Weakness/ Septic Shock. Chief Complaint: [] Interval history: 10/18-patient admitted with septic shock likely from genitourinary source. Recent UTI with Escherichia coli on cultures. started On vasopressors after 2-1 /2 L crystalloids. Improving urine output. Map at goal. transferred to ICU. Broad antibiotic coverage including vancomycin, Levaquin and cefepime. Ventura score 20. Very high risk mortality. Family aware 10/19- on Levophed at 10 mics. MAXIMUM TEMPERATURE 103. renal ultrasound no obstructive uropathy however 4.[address] abdomen in 24 hours for evaluation if patient clinically improves. white count at 13.2. 26% bands. lactic acid down from 3-1.4. improving renal function with creatinine 1.2-0.8. continue pressors and close hemodynamic monitoring. Patient critically ill. 10/20- patient doing well. Off pressors. No overnight events. Intermittent confusion in the setting of underlying dementia but no agitation. No telemetry events. afebrile during last 24 hours. foleys draining clear urine. October 21, 2016: -his patient was admitted with sepsis, which appears to be related to an E coli urinary tract infection. -Overnight, the patient developed a very pink,bright rash of her face and chest and ankles. Nursing staff noticed this has happened yesterday as well, and were concerned about the vancomycin. The patient at the time of exam was having some itching as well. Vancomycin was discontinued, and I gave her 1 dose of IVSolu-Medrol. -she also was having increasing agitation last evening, which we felt was probably ing due to her dementia. She was given IV Ativan, and actually got quite a good night sleep. She is feeling much better today. -We also had difficulty controlling her heart rate overnight, as she had A. fib with heart rates into the 140s and 150s. we increased her when necessary dose of IV metoprolol. Oral Toprol had been started earlier in the day. -she reports she is feeling better this morning. She denies subjective fever or chills sore throat. She has only an occasional cough. She denies chest pain or palpitations, shortness of breath, abdominal pain, nausea or vomiting, diarrhea or constipation. She still has a Martel catheter in place. past medical history is reviewed, and includes dementia, hypertension, hypothyroidism, anxiety, hyperlipidemia, reactive airways disease. October 22, 2016: -The patient has done well overnight. she did apparently complain of some abdominal discomfort later yesterday evening, but that seemed to settle down. Her nurses report that she had a very mucousy stool, that was guaiac positive, last night. Today she had a formed brown stool, that was guaiac negative. CT scan from yesterday showed gallbladder wall thickening and mild. Cholecystic inflammatory changes and fluid. -she was given Ativan again last night, and slept well. She says she feels fine this morning. She denies subjective fever or chills, shortness of breath or cough, chest pain or palpitations. She initially says she has no abdominal discomfort and then later says she has some cramping that makes her feel like she has to have a BM. Again, her history is unreliable because of her significant memory loss. Martel catheter remains in place. Her total white blood cell count has bumped up today,but the percentage of bands has dropped. GGT has remained elevated, but is lower than yesterday. The patient is beginning to take more solid food, and seems to be tolerating this. -her face is again flushed today, but she does not have the intense redness of her face or ankles today that was there yesterday. She is now only on IV ciprofloxacinfor antibiotics.- -Heart rate has been well controlled overnight. October 23: today, the patient continues to improve. She denies fever or chills sore throat or cough, chest pain or shortness of breath, abdominal pain, nausea or vomiting. Nurses say she has been up walking with physical therapy. -Her central line is leaking, and staff would like to pull that. They would also like to DC her Martel. -I met with her daughter again today in the room, and the daughter says her mother is doing so well, that she will take her home at discharge, rather than going to half-way. -She did lose about 3 pounds overnight with diuretics. -Dr. Isaac evaluated her last night regarding her abnormal gallbladder studies, and does not feel that she has an infected gallbladder, but rather generalized swelling due to aggressive fluid replacement during her initial treatment. - Constitutional Vitals: Vital Signs Temp Pulse Resp BP Pulse Ox 97.7 F 74 16 117/63 96 10/23/16 08:43 10/22/16 16:00 10/23/16 04:33 10/23/16 12:30 10/23/16 12:30 Period Temp Pulse Resp BP Sys/Ribeiro Pulse Ox Last 24 Hr 97.7 F-98.2 F 74 16-20 101-134/56-79 94-97 Intake and Output 10/22/16 10/23/16 10/23/16 21:59 05:59 13:59 Intake Total 480 / 480 1120 / 1120 820 / 820 Output Total 875 / 875 950 / 950 1400 / 1400 Balance -395 / -395 170 / 170 -580 / -580 Weight 211 lb Intake & Output: Intake & Output 10/22/16 10/23/16 10/23/16 21:59 05:59 13:59 Intake Total 480 / 480 1120 / 1120 820 / 820 Output Total 875 / 875 950 / 950 1400 / 1400 Balance -395 / -395 170 / 170 -580 / -580 Weight 211 lb Intake: IV 1000 / 1000 Sodium Chloride 0.9% 1, 1000 / 1000 000 ml @ 50 mls/hr IV . Q20H [facility] Rx#:[id number] Oral 480 / 480 120 / 120 820 / 820 Output: Urine Catheter Amount 875 / 875 950 / 950 1400 / 1400 Other: Meal Nourishment/Supplement Breakfast Percent of Meal Consumed 100% 100% Feeding Ability Independent Independent # Bowel Movements 1 1 on exam, the patient is awake and alert, and appears comfortable. Neck shows no obvious JVD or lymphadenopathy. cardiac exam shows a slightly irregular rhythm, with controlled rate. Lungs:Are clear to auscultation. No wheezing is heard today. abdomen: Soft,nontender, without guarding or rebound. Bowel sounds are active. Extremities: 2-3+pitting dependent edemaon the lid improving.. Skin: face and ankles are much less pink, improved compared to yesterday. Neurologic: Patient is quite forgetful but otherwise calm and cooperative. Motor exam is grossly nonfocal. Medical - PN: Obj Da - Labs CBC & Chem 7: 10/23/16 04:09 10/23/16 04:09 Labs: Abnormal Lab Results 10/23/16 10/23/16 10/22/16 04:09 04:09 04:04 WBC 11.3 H RBC 3.65 L Hgb 11.7 L Hct 34.7 L MPV 7.1 L Band Neutrophils % Lymphocytes % Nucleated RBCs 1 H Reactive Lymphocytes Creatinine 0.4 L 0.5 L Glucose 116 H Calcium 8.1 L 8.0 L Phosphorus 2.6 L 2.2 L GGT 79 H 86 H Total Protein 4.9 L 4.5 L Albumin 2.3 L 2.3 L Albumin/Globulin Ratio 0.9 L Triglycerides 161 H 10/22/16 10/21/16 10/21/16 04:04 04:45 04:45 WBC 13.5 H RBC 3.44 L 3.95 L Hgb 11.1 L Hct 32.7 L MPV Band Neutrophils % 16 H Lymphocytes % 13 L 6 L Nucleated RBCs Reactive Lymphocytes 11 H Creatinine 0.4 L Glucose 127 H Calcium 8.1 L Phosphorus 1.6 L GGT 101 H Total Protein 4.8 L Albumin 2.6 L Albumin/Globulin Ratio Triglycerides October 22:; GB ultrasound:Diffusely thickened gallbladder wall and mild pericholecystic fluid. No cholelithiasis. Prominent common bile duct. October 21: CT of the abdomen:no renal masses seen. There is a prominent cortical nodule. Gallbladder appears abnormal, ultrasound recommended. Bilateral pleural effusions and subcutaneous edema noted in both flanks. October 20: -C. difficile screen was negative. -chest x-ray shows increasing infiltrates and probable pleural fluid. October 19: Blood cultures are negative so far. October 18: 1 bottle of blood cultures grew coag negative staph, considered to be a contaminant. October 18:Renal ultrasound showed a possible solid mass in the left kidney. No stones or hydronephrosis was noted. Meds: Medications Acetaminophen (Tylenol) 650 mg PO Q4-6HP PRN PRN Reason: PAIN/FEVER > 101 Docusate Sodium (Colace) 100 mg PO BID [facility] Last Admin: 10/23/16 09:20 Dose: Not Given Heparin Sodium (Porcine) (Heparin) 5,000 unit SQ Q12 [facility] Last Admin: 10/23/16 09:21 Dose: 5,000 unit Magnesium Sulfate (Magnesium Sulfate) 2 gm in 50 mls @ 50 mls/hr IV UD PRN PRN Reason: MG = or < 1.7 Sodium Chloride (Sodium Chloride 0.9%) 1,000 mls @ 50 mls/hr IV .Q20H [facility] Last Admin: 10/23/16 05:57 Dose: 50 mls/hr Iron Carb/Multivit/[place]/Folic Acid (Multivitamin W/Minerals) 1 tab PO DAILY [facility] Last Admin: 10/23/16 09:16 Dose: 1 tab Levothyroxine Sodium (Synthroid) 112 mcg PO QAMAC [facility] Last Admin: 10/23/16 08:40 Dose: 112 mcg Lorazepam (Ativan) 0.5 mg PO Q4HP PRN PRN Reason: ANXIETY/SEDATION Last Admin: 10/22/16 21:01 Dose: 0.5 mg Lorazepam (Ativan) 0.5 mg IV Q4HP PRN PRN Reason: ANXIETY/SEDATION Metoprolol Succinate (Toprol Xl) 25 mg PO DAILY [facility] Last Admin: 10/23/16 09:20 Dose: 25 mg Metoprolol Tartrate (Lopressor) 5 mg IV Q2HP PRN PRN Reason: Tachyarrhythmias Last Admin: 10/21/16 01:07 Dose: 5 mg Nitrofurantoin Macrocrystals (Macrobid) 100 mg PO BID [facility] Last Admin: 10/23/16 09:16 Dose: 100 mg Ondansetron HCl (Zofran) 4 mg IV Q4-6HP PRN PRN Reason: Nausea And Vomiting Donepezil Hcl [ Aricept] 23 Mg Tablet 1 dose PO DAILY [facility] Last Admin: 10/23/16 09:19 Dose: 1 dose Potassium Chloride (Klor-Con) 40 meq PO DAILYP PRN PRN Reason: K+ < 3.5 Potassium/Phosphorus/Sodium (Neutra Phos) 2 packet PO BID [facility] Last Admin: 10/23/16 09:21 Dose: 2 packet Senna/Docusate Sodium (Senna Plus Tablet) 1 tab PO HS [facility] Last Admin: 10/22/16 21:01 Dose: Not Given Sertraline HCl (Zoloft) 25 mg PO DAILY [facility] Last Admin: 10/23/16 09:19 Dose: 25 mg Simvastatin (Zocor) 20 mg PO HS [facility] Last Admin: 10/22/16 21:01 Dose: 20 mg Sodium Chloride (Saline Flush) 10 ml IV UD PRN PRN Reason: FLUSH Sodium Chloride (Saline Flush) 10 ml IV Q8 [facility] Last Admin: 10/23/16 05:58 Dose: 10 ml Spironolactone (Aldactone) 50 mg PO DAILY [facility] Last Admin: 10/23/16 09:16 Dose: 50 mg Medical - PN: A/P - Time Spent With Patient Total time spent is greater than 50% in coordination of care (as documented) at patient's floor/unit and/or counseling patient: - Narrative A/P Narrative: #1. Infectious disease. Sepsis.- -this patient presented with signs of sepsis. She was initially treated aggressively with IV fluids, vancomycin, cefepime, Levaquin, vasopressors. Sepsis has now resolved. Vital signs are much improved. -Urine culture grew Escherichia coli, which is pansensitive. I discontinued all antibiotics , and then added IV ciprofloxacin. However, this was changed to by mouth nitrofurantoin, after she continued to experience a rash. -The one bottle of blood cultures that grew staph epi, is considered a contaminant. -yesterday her white blood cell count had bumped up, but it is coming back down today. She has no fever. -Continue oral Macrobid for her UTI. #2.Cardiac. - atrial fibrillation. This is much improved , now that she has resumed her Toprol. -I have restarted oral spironolactone on the and she was given 1 dose of IV Lasix yesterday, with good response. I will add back her usual HCTZ today as well. #3. Neurologic. -dementia. She did have some agitation , but this was well managed with low- dose Ativan This was reviewed with her daughter as well and she is in agreement with this management. Continue donepezil. -Anxiety. Continue when necessary Ativan.continue sertraline. #4. CODE STATUS: DNR. #5. Disposition: The patient generally is cared for by her daughter. -the patient is doing well enough, that the daughter thinks she is willing to take her back home, rather than transferring her to rehabilitation. We are tentatively planning on discharge tomorrow. #6.hypertension. Blood pressures are running in the low normal range currently. -he is back on spironolactone, and I will allow that HCTZ today, to promote continued mobilization of fluids. #7.reactive airways disease. Continue nebulizers when necessary. Lungs sound fairly clear this morning. #8. Hyperlipidemia. #9. Hypothyroidism. Continue Synthroid. #10. Skin. The patient had intense redness of her face and ankles 2 days ago, and we thought this was a "red man syndrome" from her vancomycin. However it seemed to recur, to a milder degree, after the vancomycin was discontinued. I then discontinued cefepime and Levaquin. Cipro was started for her UTI which appears to be pansensitive on but in view of the redness, I changed this to oral nitrofurantoin. -transfer from ICU to [facility] [place]. this visit took approximately 30 minutes today,to review her test results, interview and examine her, review plan of care with nursing in with her daughter , and write orders. Medical - PN: Qual - VTE Deep Vein Thrombosis/Pulmonary Embolism Present on Admission: No
[2016-10-23] MEDS ORDERED: 0.9 % SODIUM CHLORIDE 10 ML SYRINGE IV PRN (15:49)
[2016-10-23] MEDS ORDERED: METOPROLOL TARTRATE 5 MG/5 ML VIAL IV PRN (15:49)
[2016-10-23] MEDS ORDERED: ONDANSETRON 4 MG/2 ML VIAL IV PRN (15:49)
[2016-10-23] MEDS ORDERED: LORazepam 2 MG/ML VIAL IV PRN (15:49)
[2016-10-23] MEDS ORDERED: POTASSIUM CHLORIDE 20 MEQ PACKET PO PRN (15:49)
[2016-10-23] MEDS ORDERED: MAGNESIUM SULFATE 2 GM/50 ML BAG IV PRN (15:49)
[2016-10-23] MEDS ORDERED: ACETAMINOPHEN 325 MG TABLET PO PRN (15:49)
[2016-10-23] MEDS ORDERED: LORazepam 0.5 MG TABLET PO PRN (15:49)
[2016-10-23] MEDS ORDERED: SENNOSIDES/DOCUSATE SODIUM 1 TAB TABLET PO SCH (21:00)
[2016-10-23] MEDS ORDERED: SIMVASTATIN 20 MG TABLET PO SCH (21:00)
[2016-10-24] MEDS: 0.9 % SODIUM CHLORIDE 10 ML SYRINGE IV SCH (05:37)
[2016-10-24 06:33] LABS: ALT/SGPT 27 U/l (0-40); Albumin 2.6 gm/dL (3.2-5.2); Alkaline Phosphatase 67 U/L (39-117); Bilirubin,Direct < 0.2 mg/dL (0.0-0.3); Blood Urea Nitrogen 8 mg/dl (8-23); Gamma Glutamyl Transpeptidase 76 U/L (5-36); Uric Acid 3.3 mg/dL (2.5-8.0)
[2016-10-24] MEDS ORDERED: LEVOTHYROXINE SODIUM 112 MCG TABLET PO SCH (07:30)
[2016-10-24 08:24] LABS: Basophils # (Auto) 0.1 K/mcL (0.0-0.3); Basophils % (Auto) 0.8 % (0.0-2.0); Eosinophils # (Auto) 0.6 K/mcL (0.0-0.7); Eosinophils % (Auto) 5.4 % (0.0-7.0); Granulocytes % (Auto) 51.8 % (38.0-78.0); Lymphocytes # (Auto) 3.6 K/mcL (1.5-4.8); Lymphocytes % (Auto) 33.6 % (15.5-49.0); Mean Cell Volume 94.5 fL (80.0-100.0); Mean Corpuscular HGB Conc 33.9 g/dL (31.0-36.0); Mean Corpuscular Hemoglobin 32.1 pg (26.0-34.0); Monocytes # (Auto) 0.9 K/mcL (0.1-0.9); Monocytes % (Auto) 8.4 % (1.0-12.0); Platelet Count 320 K/mcL (140-440); RBC 4.08 M/mcL (4.00-5.20); Red Cell Distribution Width 14.1 % (11.5-14.5)
[2016-10-24] MEDS: HEPARIN 5,000 UNIT/ML VIAL SQ SCH (08:34)
[2016-10-24] MEDS: NITROFURANTOIN SR 100 MG CAPSULE PO SCH (08:35)
[2016-10-24] MEDS: NEUTRA PHOS 1 PACKET PO SCH (08:37)
[2016-10-24] MEDS: DOCUSATE SODIUM 100 MG CAPSULE PO SCH (08:37)
[2016-10-24] MEDS ORDERED: METOPROLOL SUCCINATE 25 MG TAB.XL.24H PO SCH (09:00)
[2016-10-24] MEDS ORDERED: MULTIVIT,THER IRON,CA,FA & MIN 1 TABLET PO SCH (09:00)
[2016-10-24] MEDS ORDERED: SERTRALINE 50 MG TABLET PO SCH (09:00)
[2016-10-24] MEDS ORDERED: SPIRONOLACTONE 25 MG TABLET PO SCH (09:00)
--- NOTE | 2016-10-24 11:20 | Discharge Summary ---
Medical - DS: Prov Patient information: Note initiated : 10/24/16 at 11:18 am Service Date, if different from initiated Date: [] Patient: Paige Christianson 76 y/o F admitted on 10/18/16 for Weakness/ Septic Shock. Chief Complaint: [] Date of admission: 10/18/16 18:50 Discharge date: 10/24/16 Primary care physician: Elizabeth Isaac Admitting clinician: Rusty Guerra Consults: 10/22/16 12:34 Consult to Physician [CONS] Routine Comment: re: abnormal gallbladder Consulting Provider: Kristofer Isaac Reason For Exam: Physician to Consult Discharging clinician: Kelsie Bazan Medical - DS: Meds - Discharge Medications Prescriptions: Nitrofurantoin Monohyd/M-Cryst [Macrobid 100 mg Capsule] 100 mg PO BID #10 capsule Active and Home Medications: Home Medications Hydrochlorothiazide [Oretic] 50 mg PO DAILY 11/04/15 [History Confirmed Last Taken Unknown] Sertraline HCl [Zoloft] 25 mg PO DAILY 11/04/15 [History Confirmed 10/18/16 Last Taken Unknown] Simvastatin [Zocor] 20 mg PO DAILY 11/04/15 [History Confirmed 10/18/16 Last Taken Unknown] Sulfamethoxazole/Trimethoprim [Bactrim Ds Tablet] 1 each PO BID #14 tablet 10/16 [Rx Confirmed 10/18/16 Last Taken Unknown] Donepezil HCl [Aricept] 23 mg PO DAILY 10/19/16 [History Confirmed 10/19/16 Last Taken Unknown] Levothyroxine Sodium [Levoxyl] 137 mcg PO ACB 10/19/16 [History Confirmed Last Taken Unknown] Metoprolol Succinate 25 mg PO DAILY 10/19/16 [History Confirmed 10/19/16 Last Taken Unknown] Spironolactone [Aldactone] 50 mg PO DAILY 10/19/16 [History Confirmed 10/19/16 Last Taken Unknown] Medical - DS: Hosp Hospital course: Mr. Christianson is a 76 year old female admitted to the hospital to MICU for severe sepsis secondary to Urinary tract infection Severe Sepsis: Treated as per protocol, with IV fluids, antibiotics and levophed , the patient responded to treatment well. At discharge her BP is stable, and she is nearly back to her baseline status. UTI: Secondary to Hoffman sensitive Ecoli, patient was treated with broad spectrum antibiotics, however due to concern for allergies, (turned red after using multiple abx) she was switched to macrobid, which she seems to be tolerating well. Her Blood cultures were negative. Renal USG did not show any obstructive pathology, however some concern for renal mass. CT abdomen was done which was reported as no renal mass. Gall bladder swelling: patient CT abdomen showed thickening of GB wall, USG liver also concerning for cholecystitis. Seen by General surgery who noted that the patients is asymptomatic and her radiology findings are due to generalized fluid overload. Fluid overload. Patient is on diuretic at home and will continue same. Expect her to improve slowly. She is not requiring any oxygen at discharge. The rest of the patient stay in the hospital was uneventful. The patient was nearly back to baseline at discharge and has good support system at home. Declined placement to SNF. The patient will be discharged home with family, and outpatient physical therapy. / Discharge diagnosis: Urosepsis. - Time Spent with Patient Total time spent providing and/or coordinating discharge services: Greater than 30 minutes Medical - DS: Exam - Constitutional Vitals: Vital Signs Temp Pulse Pulse Resp BP BP BP 10/24/16 07:34 97.9 F 16 146/79 10/24/16 07:22 69 10/24/16 03:33 97.7 F 72 12 131/68 10/23/16 23:12 98.1 F 69 12 143/76 10/23/16 19:21 98.0 F 72 12 122/71 10/23/16 16:59 98.1 F 18 133/70 10/23/16 12:30 97.3 F 117/63 Pulse Ox 10/24/16 07:34 92 10/24/16 07:22 93 10/24/16 03:33 93 10/23/16 23:12 94 10/23/16 19:21 94 10/23/16 16:59 96 10/23/16 12:30 96 Intake and Output 10/23/16 10/24/16 10/24/16 21:59 05:59 13:59 Intake Total 737 / 737 150 / 150 240 / 240 Output Total 1076 / 1076 581 / 581 100 / 100 Balance -339 / -339 -431 / -431 140 / 140 Intake: Oral 737 / 737 150 / 150 240 / 240 Output: Urine Catheter Amount 350 / 350 Void Amount 425 / 425 575 / 575 100 / 100 # of times incontinent of 1 / 1 6 / 6 urine Urine/Stool Mix 300 / 300 Other: Meal Nourishment/Supplement Percent of Meal Consumed 100% Feeding Ability Independent # Voids 1 1 1 # Bowel Movements 1 1 Weight 212 lb 4.8 oz Additional comments: Constitutional; Afebrile, cooperative, alert, not in distress. Eyes- No icterus, , No periorbital swelling Ears- Ext ear normal, hearing normal to conversation. Neck- Midline trachea, supple Respiratory system: Air Entry equal on both sides, No crackles or wheezing, no rhonchi. CVS- Rate normal, rhythm irregular, S1,S2 heard, no gallop, no rub. Abdomen- Soft nontender abdomen, no organomegaly, no tenderness, no guarding or rigidity, [employer] PLAY[employer]- AOOx1, moving all extremities, no gross focal deficit noted. Medical - DS: Data Labs on day of discharge: Labs from last 24 hours 10/24/16 10/24/16 07:37 04:22 WBC 10.9 RBC 4.08 Hgb 13.1 Hct 38.5 MCV 94.5 MCH 32.1 MCHC 33.9 RDW 14.1 Plt Count 320 MPV 6.6 L Gran % 51.8 Lymph % (Auto) 33.6 [place] % (Auto) 8.4 Eos % (Auto) 5.4 Baso % (Auto) 0.8 Gran # 5.6 Lymph # 3.6 [place] # 0.9 Eos # 0.6 Baso # 0.1 Sodium 140 Potassium 4.2 Chloride 99 Carbon Dioxide 31 H Anion Gap 10.0 BUN 8 Creatinine 0.4 L GFR Calculation 101 Glucose 94 Uric Acid 3.3 Calcium 8.6 Phosphorus 3.2 Magnesium 2.0 Total Bilirubin 0.4 Direct Bilirubin < 0.2 GGT 76 H AST 17 ALT 27 Alkaline Phosphatase 67 Lactate Dehydrogenase 209 Total Protein 5.3 L Albumin 2.6 L Globulin 2.7 Albumin/Globulin Ratio 1.0 Triglycerides 172 H Preliminary micro results at discharge 10/19/16 23:08 Blood Culture - Preliminary Blood 10/19/16 23:12 Blood Culture - Preliminary Blood Medical - DS: A/P - Patient/Caregiver Discharge Instructions Activity: increase activity as tolerated Diet: Cardiac Additional Instructions: Follow up with your PCP in 7 days. Go to the ER if worsening condition, fever, shortness of breath or chest pain. Or any new concerning symptom. Take antibiotics for additional 5 days. - Follow up Plan Follow up with: Elizabeth Isaac ARNP [Primary Care Provider] - Disposition: Home, Self-Care Prognosis: Fair Rehab Potential: Fair I certify that the patient requires SNF services: No Overall status at discharge: patient is progressing back to baseline Medical - DS: Qual - VTE Deep Vein Thrombosis/Pulmonary Embolism Present on Admission: No
== END 2016-10-24 13:25 | disposition home or self-care (01) | DRG 871 ==
LOC: ED 13:25 → SUATTDRO 18:50 → ICU 18:50 → MEDSUR 10-23 15:51
PROVIDERS: ADMIT Internal Medicine; ATTEND Internal Medicine